=== PATIENT | male | born 1950 | race Caucasian/White ===

== ENCOUNTER → 2018-07-14 13:00 | Outpatient (CLI) | payer OTHER, SELFPAY | DX: Z23 Encounter for immunization (principal) | CPT/HCPCS: 90471; 90662 ==

== ENCOUNTER → 2019-05-17 14:29 | Outpatient (CLI) | payer OTHER, SELFPAY ==
[2019-05-17 15:53] LABS: Prothrombin Time 34.8 SECONDS (10.1-12.7)
== END ==
PROVIDERS: Family Provider Internal Medicine; PCP Internal Medicine; Visit Provider Student in an Organized Health Care Education/Training Program
DX: Z79.01 Long term (current) use of anticoagulants (principal)
CPT/HCPCS: 36415; 85610

== ENCOUNTER → 2019-06-23 09:04 | Outpatient (CLI) | payer OTHER, SELFPAY ==
[2019-06-23 11:11] LABS: BUN Creatinine Ratio 17.8 (6-22); Blood Urea Nitrogen 16 mg/dL (9-20); Carbon Dioxide 28 mmol/L (22-32); Chloride 103 mmol/L (98-107); Estimated Glomerular Filt Rate > 60.0 mL/min (>60); Glucose 98 mg/dL (80-110); Potassium 4.6 mmol/L (3.4-5.1); Sodium 142 mmol/L (137-145)
[2019-06-23 11:12] LABS: Aspartate Aminotransferase 33 IU/L (17-59); Calcium 9.9 mg/dL (8.4-10.2); HEMOLYSIS 35 (0-50)
== END ==
PROVIDERS: PCP Internal Medicine; Visit Provider Internal Medicine
DX: E78.2 Mixed hyperlipidemia (principal); N40.0 Benign prostatic hyperplasia without lower urinary tract symptoms; I10 Essential (primary) hypertension
CPT/HCPCS: 36415; 80048; 84153; 84450

== ENCOUNTER → 2020-08-07 03:57 | Outpatient (CLI) | payer OTHER, SELFPAY | PROVIDERS: PCP Internal Medicine; Referring Provider Internal Medicine; Visit Provider Internal Medicine | DX: Z23 Encounter for immunization (principal) | CPT/HCPCS: 90471; 90662 ==

== ENCOUNTER → 2020-08-29 07:27 | Outpatient (CLI) | payer OTHER, SELFPAY ==
[2020-08-29 13:26] LABS: BUN Creatinine Ratio 28.4 (6-22); Blood Urea Nitrogen 21 mg/dL (9-20); Calcium 9.8 mg/dL (8.4-10.2); Carbon Dioxide 29 mmol/L (22-32); Chloride 104 mmol/L (98-107); Cholesterol 143 mg/dL (140-199); Estimated Glomerular Filt Rate > 60.0 mL/min (>60); Glucose 77 mg/dL (80-110); HDL Cholesterol 55 mg/dL (40-60); HEMOLYSIS < 15 (0-50); LDL Cholesterol Calculated 50 mg/dL (<100); Potassium 4.5 mmol/L (3.4-5.1); Sodium 140 mmol/L (137-145); Triglycerides 188 mg/dL (35-150)
== END ==
PROVIDERS: PCP Internal Medicine; Referring Provider Internal Medicine; Visit Provider Internal Medicine
DX: I48.91 Unspecified atrial fibrillation (principal); I10 Essential (primary) hypertension
CPT/HCPCS: 36415; 80048; 80061

== ENCOUNTER → 2020-11-08 09:49 | Outpatient (CLI) | payer OTHER, SELFPAY ==
[2020-11-08] MEDS: COVID-19 VACC(MODERNA-1)/PF 100 MCG/0.5 ML VIAL IM (09:55)
== END ==
PROVIDERS: Family Provider Internal Medicine; PCP Internal Medicine; Visit Provider Internal Medicine
DX: Z23 Encounter for immunization (principal)
CPT/HCPCS: 0011A; 91301

== ENCOUNTER → 2020-12-06 09:33 | Outpatient (CLI) | payer OTHER, SELFPAY ==
[2020-12-06] MEDS: COVID-19 VACC #2, MRNA(MOD) 100 MCG/0.5 ML VIAL IM (09:39)
== END ==
PROVIDERS: Family Provider Internal Medicine; PCP Internal Medicine; Visit Provider Internal Medicine
DX: Z23 Encounter for immunization (principal)
CPT/HCPCS: 0012A; 91301

== ENCOUNTER 2021-01-03 13:00 | Outpatient (RCR) | payer OTHER, SELFPAY ==
--- NOTE | 2020-09-26 14:10 | PT.OPPOC ---
Physical, Occupational & Speech Therapy At [facility] Current Diagnoses Benign paroxysmal vertigo, bilateral (09/26/20) Visit Care Team Role Provider Type Harsh Alexander MD Attending Provider Physician Family Provider Primary Care Provider Referring Provider Specialty: Internal Medicine Address: [address] [place] [address], [id number] Email: [email or web address] Plan Of Care PT-OP-T Assessment and Plan Start: 09/26/20 07:23 Freq: Status: Active Protocol: Document 09/26/20 07:32 MB (Rec: 09/26/20 14:06 MB [id number]) Physical Therapy Assessment Rehab Potential Rehabilitation Potential Good Evaluation Complexity Number of Personal Factors/Comorbidities 0 Number of Body Systems Impaired 1-2 Clinical Presentation at Evaluation Evolving Impairments Impairments Balance,Posture,Soft Tissue Mobility,Vestibular,Visual Motor Other Impairments Systems affected include visual, vestibular and cardiac . His clinical presentation is evolving in setting of aortic stenosis. Other Concerns Fall Risk Yes Goals 2 Long-Term Goal (LTG) Pt will perform progressive HEP with I including VOR, postural, flexibility and balance exercises to decrease fall risk and improve posture and VOR function by 10/16/2020 . LTG Duration 4 weeks 1 Bulk Sugar Handler Goal (LTG) Pt will report a 95% improvement in dizziness to improve quality of life by . LTG Duration 4 weeks Assessment Summary Assessment Pt is a 70 y/o male presenting with three month history of dizziness with rolling to the right and moving up from reclined position. The symptoms are different with the two position changes-- rolling producing spinning and sitting up producting sensation of having had cocktails. Pt presents with right posterior canalithiasis BPPV today and it cleared after repositioning maneuver. He presents with postural changes that include forward head and SCM tension and these may contribute to the symptoms when he moves up to sitting from reclined position . Pt reports a history of sudden right vision loss and he was treated with TPA and takes a blood thinner. He also reports aortic stenosis and is considering having AVR. It is possible that he could have a cervicogenic vascular component to his symptoms. 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 Right eye blindness is a challenge for visual tracking and so this may affect VOR training. He may also benefit from postural training to help cervical myofascial tension in order to promote better cervical rotation for driving, cycling and scanning. Physical Therapy Plan Frequency and Duration Frequency of Treatment 1x/Week Duration of Treatment 4 weeks Plan of Care Start Date 09/26/20 Plan of Care End Date 10/17/20 Therapeutic Interventions Therapeutic Interventions Balance Training,Canalithic Repositioning,Coordination Training,Gait Training,Home Exercise Program,Joint Mobilizations,Manual Therapy, Neuromuscular Re-education, Patient/Caregiver Education, Self-Care/Home Management,Soft Tissue Mobilization,Taping, Therapeutic Exercises, Vestibular Rehabilitation Next Visit Focus/Plan Next Note Type Treatment Note Next Visit Plan DVA testing, racquet ball self -massage Plan of Care Dates Plan of Care Start Date 09/26/20 Plan of Care End Date 10/17/20 Electronically Signed by: Ariana Bronson, PT 09/26/20 1002 Please Sign and Return: I have reviewed this Plan of Care and certify that the skilled therapy services above are required to meet the patient?s needs. Physician Signature Date Printed Name and Credentials Clinical Instructor Signature Printed Name and Credentials
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
--- NOTE | 2020-11-18 13:18 | PT.OPPOC ---
Physical, Occupational & Speech Therapy At [facility] Current Diagnoses Benign paroxysmal vertigo, bilateral (11/18/20) Visit Care Team Role Provider Type Harsh Alexander MD Attending Provider Physician Family Provider Primary Care Provider Referring Provider Specialty: Internal Medicine Address: [address] [place] [address], [address] Email: [email or web address] Of Care PT-OP-T Assessment and Plan Start: 09/26/20 07:23 Freq: Status: Active Protocol: Document 11/18/20 08:18 MB (Rec: 11/18/20 08:46 MB [id number]) Physical Therapy Assessment Rehab Potential Rehabilitation Potential Good Evaluation Complexity Number of Personal Factors/Comorbidities 0 Number of Body Systems Impaired 1-2 Clinical Presentation at Evaluation Evolving Impairments Impairments Balance,Posture,Soft Tissue Mobility,Vestibular,Visual Motor Other Impairments Systems affected include visual, vestibular and cardiac . His clinical presentation is evolving in setting of aortic stenosis. Other Concerns Fall Risk Yes Goals 2 Group Home Goal (LTG) Pt will perform progressive HEP with I including VOR, postural, flexibility and balance exercises to decrease fall risk and improve posture and VOR function by 01/16/2021. 11/18/20: Pt is performing DVA VOR exercise and racquet ball massage as well as STM SCM. LTG Duration 8 weeks 1 Dietitian Goal (LTG) Pt will report a 95% improvement in dizziness to improve quality of life by . 11/18/20: Pt reports positional dizziness upon arrival and no dizziness after modified Mary for BPPV. LTG Duration 8 weeks Progress Towards Goals Progress Towards Goals Progressing Toward Goals Assessment Summary Assessment Pt returns to PT one month after last treatment. He reports that his BPPV has returned and he does have positive right posterior canalithiasis with assessment and so re-treated today. Pt reports some tension in temporal area and is agreeable to Counterstrain and so that initiated today. Pt will benefit from ongoing PT to address postural changes, assess for BPPV and progress balance and VOR exercises. Pt is currently scheduling 1x/ month but may benefit from more frequent treatments. Physical Therapy Plan Frequency and Duration Frequency of Treatment As pt schedule allow Duration of Treatment 8 weeks Plan of Care Start Date 11/18/20 Plan of Care End Date 01/16/21 Therapeutic Interventions Therapeutic Interventions Balance Training,Canalithic Repositioning,Coordination Training,Gait Training,Home Exercise Program,Joint Mobilizations,Manual Therapy, Neuromuscular Re-education, Patient/Caregiver Education, Self-Care/Home Management,Soft Tissue Mobilization,Taping, Therapeutic Exercises, Vestibular Rehabilitation Next Visit Focus/Plan Next Note Type Treatment Note Next Visit Plan Re-check BPPV as needed. Review any exercises and add LE strengthening in standing, with gait to improve balance Plan of Care Dates Plan of Care Start Date 11/18/20 Plan of Care End Date 01/16/21 Electronically Signed by: Ariana Bronson, PT 11/18/20 [id number] Please Sign and Return: I have reviewed this Plan of Care and certify that the skilled therapy services above are required to meet the patient?s needs. Physician Signature Date Printed Name and Credentials Clinical Instructor Signature Printed Name and Credentials
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
--- NOTE | 2021-01-03 13:43 | PT.OPPOC ---
Physical, Occupational & Speech Therapy At [facility] Current Diagnoses Benign paroxysmal vertigo, bilateral (01/03/21) Visit Care Team Role Provider Type Harsh Alexander MD Attending Provider Physician Family Provider Primary Care Provider Referring Provider Specialty: Internal Medicine Address: [address] [place] [address], [id number] Email: [email or web address] Plan Of Care PT-OP-T Assessment and Plan Start: 09/26/20 07:23 Freq: Status: Active Protocol: Document 01/03/21 13:02 MB (Rec: 01/03/21 13:22 MB [id number]) Physical Therapy Assessment Rehab Potential Rehabilitation Potential Good Evaluation Complexity Number of Personal Factors/Comorbidities 0 Number of Body Systems Impaired 1-2 Clinical Presentation at Evaluation Evolving Impairments Impairments Balance,Posture,Soft Tissue Mobility,Vestibular,Visual Motor Other Impairments Systems affected include visual, vestibular and cardiac . His clinical presentation is evolving in setting of aortic stenosis. Other Concerns Fall Risk Yes Goals 2 Penitentiary Goal (LTG) Pt will perform progressive HEP with I including VOR, postural, flexibility and balance exercises to decrease fall risk and improve posture and VOR function by 03/05/21. 01/03/21: Pt is performing DVA VOR exercise and racquet ball massage as well as STM SCM. LTG Duration 8 weeks 1 Penitentiary Goal (LTG) Pt will report a 95% improvement in dizziness to improve quality of life by 09/2021. 01/03/21: Pt reports 27% improvement in dizziness since starting PT LTG Duration 8 weeks Progress Towards Goals Progress Towards Goals Progressing Toward Goals Assessment Summary Assessment Pt presents with recurrence of right posterior canalithiasis BPPV today and treated. Re-ed pt on posture, hydration, self-massage. Pt would like to keep PT case open in case BPPV recurs and PT in agreement given this is the second recurrence. Physical Therapy Plan Frequency and Duration Frequency of Treatment As pt schedule allow Duration of Treatment 8 weeks Plan of Care Start Date 01/03/21 Plan of Care End Date 03/05/21 Therapeutic Interventions Therapeutic Interventions Balance Training,Canalithic Repositioning,Coordination Training,Gait Training,Home Exercise Program,Joint Mobilizations,Manual Therapy, Neuromuscular Re-education, Patient/Caregiver Education, Self-Care/Home Management,Soft Tissue Mobilization,Taping, Therapeutic Exercises, Vestibular Rehabilitation Next Visit Focus/Plan Next Note Type Treatment Note Next Visit Plan Re-check BPPV as needed. Review any exercises and add LE strengthening in standing, with gait to improve balance Plan of Care Dates Plan of Care Start Date 01/03/21 Plan of Care End Date 03/05/21 Electronically Signed by: Ariana Bronson, PT 01/03/21 4739 Please Sign and Return: I have reviewed this Plan of Care and certify that the skilled therapy services above are required to meet the patient?s needs. Physician Signature Date Printed Name and Credentials Clinical Instructor Signature Printed Name and Credentials
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
== END 2021-02-12 07:40 | disposition home or self-care (01) ==
LOC: PHYS 13:00
PROVIDERS: Family Provider Internal Medicine; PCP Internal Medicine; Referring Provider Internal Medicine; Visit Provider Internal Medicine
DX: H81.13 Benign paroxysmal vertigo, bilateral (principal)
CPT/HCPCS: 95992; 97110; 97112; 97140; 97162; 97535

== ENCOUNTER → 2021-06-09 16:02 | Outpatient (CLI) | payer OTHER, SELFPAY ==
--- NOTE | 2021-06-09 | DI.MRI.S_ITS ---
PROCEDURE: MR ANKLE LT WO CON INDICATIONS: Achilles tendinitis, unspecified leg TECHNIQUE: Noncontrast sagittal T1 spin echo and T2 fast spin echo with fat saturation, axial proton density fast spin echo and T2 fast spin echo with fat saturation, coronal T1 spin echo and T2 fast spin echo with fat saturation through the ankle/hindfoot. COMPARISON: None. FINDINGS: Bones and joints: Bones: No marrow contusions or fractures. Scattered degenerative subchondral sclerosis and spurring. Circumferential subcutaneous edema. Mild tibiotalar joint degeneration. Coalitions: No hindfoot coalitions. Talar dome: Subchondral marrow edema involving the lateral talar dome probably reactive to osteoarthritis, versus osteochondral lesion of talus. Other: No pathologic joint effusions. Medial structures: Posterior tibialis: Intact. Mild tenosynovitis Flexor digitorum longus: Intact. Mild tenosynovitis Flexor hallucis longus: Intact. Posterior tibial neurovascular bundle: Normal. Deltoid ligament complex: Intact. Spring ligament: Intact. Lateral structures: Anterior talofibular ligament: Not well seen likely indicating chronic rupture. Calcaneofibular ligament: Intact. Posterior talofibular ligament: Intact. Anterior tibiofibular ligament: Intact. Posterior tibiofibular ligament: Intact. Intermalleolar ligament: Intact. Tibiofibular syndesmosis: Normal. Peroneus longus: Intact. Peroneus brevis: Intact. Bony peroneal tubercle and retrotrochlear prominence: Normal. Sinus tarsi: Normal. Anterior structures: Tibialis anterior: Intact. Extensor hallucis longus: Intact. Extensor digitorum longus: Intact. Dorsal talonavicular ligament: Intact. Posterior and plantar structures: Achilles tendon: High-grade partial rupture of the Achilles tendon with marked tendinopathy and thickening. This is centered approximately 6.8 cm from the calcaneal attachment and measures approximately 4.8 cm in length. There is adjacent edema. Plantar fascia: Medial band plantar fasciitis. Muscles: There is isolated abductor digiti quinti muscle atrophy which raises the possibility of suggest neuropathy. IMPRESSION: High-grade partial rupture of the Achilles tendon as detailed above. Circumferential subcutaneous edema. Tenosynovitis involving the posterior tibialis and flexor digitorum longus. 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 Medial band plantar fasciitis Dictated by: Gigi Hunter M.D. on 06/09/2021 at 17:09 Approved by: Gigi Hunter M.D. on 06/09/2021 at 17:18
== END ==
PROVIDERS: Family Provider Internal Medicine; PCP Internal Medicine; Referring Provider Physician Assistant; Visit Provider Physician Assistant
DX: M76.62 Achilles tendinitis, left leg (principal); S86.012A Strain of left Achilles tendon, initial encounter; S93.492A Sprain of other ligament of left ankle, initial encounter; M72.2 Plantar fascial fibromatosis; X58.XXXA Exposure to other specified factors, initial encounter
CPT/HCPCS: 73721

== ENCOUNTER → 2021-08-05 | Outpatient (CLI) | payer OTHER, SELFPAY | PROVIDERS: Family Provider Internal Medicine; PCP Internal Medicine; Referring Provider Internal Medicine; Visit Provider Internal Medicine | DX: Z23 Encounter for immunization (principal) | CPT/HCPCS: 90471; 90662 ==

== ENCOUNTER → 2021-11-28 10:38 | Outpatient (CLI) | payer OTHER, SELFPAY ==
[2021-11-28 12:52] LABS: COVID19 - ADMIT (NP swab/PCR) Negative (Negative)
== END ==
PROVIDERS: Family Provider Internal Medicine; PCP Internal Medicine; Visit Provider Family Medicine Sleep Medicine
DX: Z20.822 Contact with and (suspected) exposure to COVID-19 (principal)
CPT/HCPCS: C9803; U0003; U0005

== ENCOUNTER → 2022-03-04 07:33 | Outpatient (CLI) | payer OTHER, SELFPAY ==
[2022-03-04 08:28] LABS: Hematocrit 44.7 % (41-53); Hemoglobin 15.2 g/dL (13.5-17.5); Mean Corpuscular HGB Conc 33.9 % (30-36); Mean Corpuscular Hemoglobin 30.6 PG (26-34); Mean Corpuscular Volume 90.2 fL (80-100); Platelet Count 123 X10^3/uL (150-400); Red Blood Cell Count 4.96 X10^6/uL (4.5-5.9); Red Cell Distribution Width 13.8 % (11.6-14.8); White Blood Cell Count 7.5 X10^3/uL (4.5-11.0)
[2022-03-04 08:56] LABS: Alanine Aminotransferase 27 IU/L (<50); Albumin 4.4 g/dL (3.5-5.0); Albumin Globulin Ratio 1.5 (1.0-2.8); Alkaline Phosphatase 93 U/L (38-126); Aspartate Aminotransferase 32 IU/L (17-59); BUN Creatinine Ratio 20.8 (6-22); Bilirubin Total 0.7 mg/dL (0.2-1.3); Blood Urea Nitrogen 16 mg/dL (9-20); Calcium 9.3 mg/dL (8.4-10.2); Carbon Dioxide 25 mmol/L (22-32); Chloride 109 mmol/L (98-107); Cholesterol 147 mg/dL (140-199); Estimated Glomerular Filt Rate > 60 mL/min (>60); Globulin 2.9 g/dL (1.7-4.1); Glucose 99 mg/dL (80-110); HDL Cholesterol 54 mg/dL (40-60); HEMOLYSIS < 15 (0-50); LDL Cholesterol Calculated 60 mg/dL (<100); Potassium 4.2 mmol/L (3.4-5.1); Sodium 141 mmol/L (137-145); Total Protein 7.3 g/dL (6.3-8.2); Triglycerides 164 mg/dL (35-150)
[2022-03-04 09:23] LABS: Prostate Specific Antigen 1.31 ng/mL (0.10-4.00)
[2022-03-04 09:26] LABS: TSH w/ Reflex to FT4 1.19 uIU/mL (0.47-4.68)
== END ==
PROVIDERS: Family Provider Internal Medicine; PCP Internal Medicine; Referring Provider Internal Medicine; Visit Provider Internal Medicine
DX: E78.2 Mixed hyperlipidemia (principal); I35.0 Nonrheumatic aortic (valve) stenosis; I48.92 Unspecified atrial flutter; N13.8 Other obstructive and reflux uropathy; N40.1 Benign prostatic hyperplasia with lower urinary tract symptoms
CPT/HCPCS: 36415; 80053; 80061; 84153; 84443; 85027

== ENCOUNTER 2022-05-04 08:30 | Outpatient (RCR) | payer OTHER, SELFPAY | END 2022-05-04 12:00 | LOC: CAR 08:30 | PROVIDERS: Family Provider Internal Medicine; PCP Internal Medicine; Referring Provider Internal Medicine Interventional Cardiology; Visit Provider Internal Medicine Interventional Cardiology | DX: Z95.2 Presence of prosthetic heart valve (principal) | CPT/HCPCS: 93798 ==

== ENCOUNTER → 2022-06-17 08:30 | Outpatient (CLI) | payer OTHER, SELFPAY ==
[2022-06-17 09:17] LABS: INR 2.2 (0.9-1.3); Prothrombin Time 25.7 SECONDS (10.1-12.7)
== END ==
PROVIDERS: Family Provider Internal Medicine; PCP Internal Medicine; Referring Provider Internal Medicine; Visit Provider Internal Medicine
DX: Z79.01 Long term (current) use of anticoagulants (principal)
CPT/HCPCS: 36415; 85610

== ENCOUNTER → 2022-07-21 09:00 | Outpatient (CLI) | payer OTHER, SELFPAY | PROVIDERS: Family Provider Internal Medicine; PCP Internal Medicine; Referring Provider Internal Medicine; Visit Provider Internal Medicine | DX: Z23 Encounter for immunization (principal) | CPT/HCPCS: 90471; 90662 ==

== ENCOUNTER → 2022-07-29 08:04 | Outpatient (CLI) | payer OTHER, SELFPAY ==
[2022-07-29 10:39] LABS: INR 2.7 (0.9-1.3); Prothrombin Time 30.8 SECONDS (10.1-12.7)
== END ==
PROVIDERS: Family Provider Internal Medicine; PCP Internal Medicine; Referring Provider Internal Medicine; Visit Provider Internal Medicine
DX: Z79.01 Long term (current) use of anticoagulants (principal); Z95.2 Presence of prosthetic heart valve
CPT/HCPCS: 36415; 85610

== ENCOUNTER → 2022-09-08 08:16 | Outpatient (CLI) | payer OTHER, SELFPAY ==
[2022-09-08 09:00] LABS: Hematocrit 42.7 % (41-53); Hemoglobin 14.1 g/dL (13.5-17.5); Mean Corpuscular HGB Conc 33.1 % (30-36); Mean Corpuscular Hemoglobin 29.9 PG (26-34); Mean Corpuscular Volume 90.4 fL (80-100); Platelet Count 134 X10^3/uL (150-400); Red Blood Cell Count 4.73 X10^6/uL (4.5-5.9); Red Cell Distribution Width 13.7 % (11.6-14.8); White Blood Cell Count 6.1 X10^3/uL (4.5-11.0)
[2022-09-08 09:14] LABS: INR 2.1 (0.9-1.3); Prothrombin Time 24.4 SECONDS (10.1-12.7)
[2022-09-08 09:18] LABS: Alanine Aminotransferase 32 IU/L (<50); Albumin 4.2 g/dL (3.5-5.0); Albumin Globulin Ratio 1.5 (1.0-2.8); Alkaline Phosphatase 110 U/L (38-126); Aspartate Aminotransferase 34 IU/L (17-59); BUN Creatinine Ratio 25.6 (6-22); Bilirubin Total 0.6 mg/dL (0.2-1.3); Blood Urea Nitrogen 21 mg/dL (9-20); C-Reactive Protein Quant < 0.5 mg/dL (<1.0); Calcium 9.2 mg/dL (8.4-10.2); Carbon Dioxide 26 mmol/L (22-32); Chloride 106 mmol/L (98-107); Cholesterol 121 mg/dL (140-199); Estimated Glomerular Filt Rate > 60 mL/min (>60); Globulin 2.8 g/dL (1.7-4.1); Glucose 86 mg/dL (80-110); HDL Cholesterol 59 mg/dL (40-60); HEMOLYSIS < 15 (0-50); LDL Cholesterol Calculated 38 mg/dL (<100); Potassium 4.2 mmol/L (3.4-5.1); Sodium 141 mmol/L (137-145); Triglycerides 120 mg/dL (35-150)
[2022-09-08 09:42] LABS: TSH w/ Reflex to FT4 1.73 uIU/mL (0.47-4.68)
== END ==
PROVIDERS: Family Provider Internal Medicine; PCP Internal Medicine; Referring Provider Internal Medicine; Visit Provider Internal Medicine
DX: E78.2 Mixed hyperlipidemia (principal); I35.0 Nonrheumatic aortic (valve) stenosis; I48.92 Unspecified atrial flutter; Z79.01 Long term (current) use of anticoagulants; M13.0 Polyarthritis, unspecified; Z95.2 Presence of prosthetic heart valve
CPT/HCPCS: 36415; 80053; 80061; 84443; 85027; 85610; 86140

== ENCOUNTER → 2022-11-05 10:20 | Outpatient (CLI) | payer OTHER, SELFPAY ==
[2022-11-05 10:45] LABS: INR 2.7 (0.9-1.3); Prothrombin Time 31.1 SECONDS (10.1-12.7)
== END ==
PROVIDERS: Family Provider Internal Medicine; PCP Internal Medicine; Referring Provider Internal Medicine; Visit Provider Internal Medicine
DX: Z79.01 Long term (current) use of anticoagulants (principal); Z95.2 Presence of prosthetic heart valve
CPT/HCPCS: 36415; 85610

== ENCOUNTER → 2022-11-18 09:16 | Outpatient (CLI) | payer OTHER, SELFPAY ==
[2022-11-18 10:20] LABS: COVID19 -Nasal RAPID Negative (Negative)
== END ==
PROVIDERS: Family Provider Internal Medicine; PCP Internal Medicine; Visit Provider Surgery
DX: Z01.812 Encounter for preprocedural laboratory examination (principal); Z20.822 Contact with and (suspected) exposure to COVID-19
CPT/HCPCS: 87635; C9803

== ENCOUNTER → 2022-11-19 08:59 | Day surgery (SDC) | payer OTHER, SELFPAY ==
[2022-11-19] VITALS (9 sets, daily range): BP systolic 59–122; BP diastolic 36–82; PULSE 39–77; RESP 12–18; TEMP 36.3–36.6; O2SAT 95–99; BMI 27.5
--- NOTE | 2022-11-19 | PATH_ITS ---
[facility] Accession Number: [id number] No. of containers..02 Tissue . 01 Material submitted: . PART A: colon - ASCENDING POLYPS PART B: colon - DESCENDING POLYP . 01 Diagnosis: A. Ascending Colon, Polyps, Biopsies: Tubular adenomas. . B. Descending Colon, Polyp, Biopsy: Tubular adenoma. MRV 11/25/2022 1149 Local . 01 Electronically signed: . Alondra Freitas MD, Pathologist NPI- [id number] . 01 Gross description: . Part A: ASCENDING POLYPS: Received in formalin are multiple fragment(s) of steward, soft tissue measuring 1.7 x 0.6 x 0.1 cm in aggregate submitted entirely in 1 cassette(s) Part B: DESCENDING POLYP: Received in formalin is 1 fragment(s) of steward, soft tissue measuring 0.3 x 0.2 x 0.1 cm submitted entirely in 1 cassette(s) /CPE 11/20/2022 0837 Local . 01 Pathologist provided ICD-10: D12.2, D12.4 . 01 CPT . 167485, [id number] Specimen Comment: A courtesy copy of this report has been sent to [phone] Performed at: 01 [facility] [address] [place] [address] Suite [facility], [place], [place] [id number] MD Capo Jeong MD Phone: [phone]
[2022-11-19] MEDS: LACTATED RINGERS 1,000 ML 84 ML IV (09:55)
--- NOTE | 2022-11-19 09:57 | PM.HP.1 ---
History of Present Illness History of Present Illness Date Patient Seen: 11/19/22 Time Patient Seen: 09:57 Chief complaint: SCREENING COLONOSCOPY Narrative: Anam is a 72-year-old man who is here for colonoscopy. His last 1 was 2011. Two polyps were removed but 1 was normal tissue and 1 was a hyperplastic polyp. He has stopped his Coumadin and his INR is normal. Patient History Medical History (Updated 11/19/22 @ 09:58 by Bernabe Evangelista MD) Advanced directives, counseling/discussion BPH w urinary obs/LUTS Chronic anticoagulation Chronic insomnia Essential hypertension History of gout Hyperlipidemia type III Medicare annual wellness visit, initial Non-rheumatic aortic stenosis Paroxysmal atrial flutter Primary osteoarthritis involving multiple joints Surgical History S/P TAVR (transcatheter aortic valve replacement) Family & Social History Social History: household members spouse Tobacco & Substance use: Smoking Status Never smoker alcohol intake current Meds Home Medications and Allergies Home Medications Medication Instructions Recorded Confirmed Type amlodipine 5 mg tablet (Norvasc) 5 mg PO QDAY ##0 12/23/16 11/19/22 History lisinopril 20 mg tablet 20 mg PO QDAY ##0 12/23/16 11/19/22 History metoprolol succinate 50 mg 50 mg PO DAILY 03/02/22 11/19/22 History tablet,extended release 24 hr warfarin 5 mg tablet 5 mg PO DAILY 03/02/22 11/19/22 History alpha lipoic acid 1,000 mg PO DAILY 09/07/22 09/07/22 History amoxicillin 500 mg capsule 2,000 mg PO .prn 09/07/22 09/07/22 History coenzyme Q10 100 mg capsule See Rx Instructions PO BID 09/07/22 09/07/22 History niacin 500 mg tablet 500 mg PO BID 09/07/22 09/07/22 History omega 3 1,000 mg PO DAILY 09/07/22 History rosuvastatin 40 mg tablet 40 mg PO Q OTHER DAY 09/07/22 11/19/22 History sodium sul 1.479 gram-potas ch See Rx Instructions PO PER PKG DIR 11/06/22 Rx 0.188 gram-magnes sul 0.225 gram #24 tabs tablet (Sutab) Allergies Allergy/AdvReac Type Severity Reaction Status Date / Time No Known Allergies Allergy Unknown Uncoded 11/19/22 09:28 Exam Vital Signs (past 8 hours): - 11/19/22 09:31 Temperature 97.8 F Pulse Rate 77 Respiratory Rate 14 Blood Pressure 122/82 Pulse Oximetry 99 Oxygen Delivery Method Room Air Oxygen Delivery Method Room Air Const General: healthy appearing Assessment & Plan Assessment and plan (1) Colon cancer screening: Status: Acute Plan 72-year-old man who is here for colonoscopy for colon cancer screening. We reviewed the risks and benefits and he would like to proceed. Time Spent With Patient Critical Care time: I spent a total of [] minutes of critical care time on this patient's care today; this time is exclusive of procedural time.
--- NOTE | 2022-11-19 11:11 | PM.OP.COLON ---
Operative Date/Time/Diagnoses Date of procedure: 11/19/22 Time of procedure: 11:11 Pre-op diagnosis: Colon cancer screening Post-op diagnosis: same Procedure & Clinicians Study performed: Colonoscopy Same procedure as scheduled: Yes Surgeon: Bernabe Evangelista Procedure Notes Procedure in detail: Surgeon: Bernabe Evangelista MD Anesthesia: Dr. Holman Procedure: The patient was brought to the endoscopy suite, placed in left lateral decubitus position. The patient was connected to monitoring devices. A time-out was performed. Sedation was administered. Once the patient was adequately sedated, a digital rectal exam was performed and was normal. The scope was then inserted and advanced to the cecum where the appendiceal orifice was identified and photographed. The scope was then slowly withdrawn over greater than 6 minutes. The mucosa was thoroughly inspected. There was a 1 cm flat polyp in the proximal ascending colon removed with a hot snare. There was a 5 mm polyp in the distal ascending colon close to the hepatic flexure removed with a cold snare. There was a 5 mm polyp in the descending colon removed with a cold forceps. The scope was retroflexed in the rectum. No other abnormalities were seen. The scope was straightened and removed. The patient was awakened and brought to recovery. Scope withdrawal time: 15 minutes Sedation time: 22 minutes EBL: 5 mL Findings: 1 cm polyp in the ascending colon, 5 mm polyp in the ascending colon, 5 mm polyp in the descending colon Post-procedure Disposition: PACU
== END | disposition home or self-care (01) ==
PROVIDERS: Family Provider Internal Medicine; PCP Internal Medicine; Referring Provider Surgery; Visit Provider Surgery
PROC: 0DJD8ZZ Inspection of Lower Intestinal Tract, Via Natural or Artificial Opening Endoscopic (ICD-10-PCS; CPT 45378; principal; 2022-11-19 10:15)
DX: Z12.11 Encounter for screening for malignant neoplasm of colon (principal); D12.2 Benign neoplasm of ascending colon; D12.4 Benign neoplasm of descending colon
CPT/HCPCS: 45385; 45380; J2704; J3010

== ENCOUNTER → 2023-01-08 08:07 | Outpatient (CLI) | payer OTHER, SELFPAY ==
[2023-01-08 08:54] LABS: INR 1.9 (0.9-1.3); Prothrombin Time 22.2 SECONDS (10.1-12.7)
== END ==
PROVIDERS: Family Provider Internal Medicine; PCP Internal Medicine; Referring Provider Internal Medicine; Visit Provider Internal Medicine
DX: Z79.01 Long term (current) use of anticoagulants (principal); Z95.2 Presence of prosthetic heart valve
CPT/HCPCS: 36415; 85610

== ENCOUNTER → 2023-03-15 07:36 | Outpatient (CLI) | payer OTHER, SELFPAY ==
[2023-03-15 08:44] LABS: BUN Creatinine Ratio 26.1 (6-22); Blood Urea Nitrogen 18 mg/dL (9-20); Calcium 9.4 mg/dL (8.4-10.2); Carbon Dioxide 27 mmol/L (22-32); Chloride 106 mmol/L (98-107); Estimated Glomerular Filt Rate > 60 mL/min (>60); Glucose 93 mg/dL (80-110); HEMOLYSIS < 15 (0-50); Potassium 4.2 mmol/L (3.4-5.1); Sodium 140 mmol/L (137-145)
[2023-03-15 09:16] LABS: Prostate Specific Antigen 1.12 ng/mL (0.10-4.00)
[2023-03-17 04:12] LABS: Lipoprotein (a) 15.2 nmol/L (<75.0)
== END ==
PROVIDERS: Family Provider Internal Medicine; PCP Internal Medicine; Referring Provider Internal Medicine; Visit Provider Internal Medicine
DX: E78.2 Mixed hyperlipidemia (principal); I10 Essential (primary) hypertension; N13.8 Other obstructive and reflux uropathy; N40.1 Benign prostatic hyperplasia with lower urinary tract symptoms
CPT/HCPCS: 36415; 80048; 83695; 84153

== ENCOUNTER → 2023-07-27 15:59 | Outpatient (CLI) | payer OTHER, SELFPAY | PROVIDERS: Family Provider Internal Medicine; PCP Internal Medicine; Referring Provider Family Medicine; Visit Provider Family Medicine | DX: Z23 Encounter for immunization (principal) | CPT/HCPCS: 90471; 90662 ==

== ENCOUNTER → 2023-11-16 06:59 | Outpatient (CLI) | payer OTHER, SELFPAY ==
[2023-11-16 08:36] LABS: INR 1.6 (0.9-1.3); Prothrombin Time 18.9 SECONDS (9.4-12.5)
[2023-11-16 10:06] LABS: Cholesterol 126 mg/dL (140-199); HDL Cholesterol 59 mg/dL (40-60); LDL Cholesterol Calculated 46 mg/dL (<100); Magnesium 2.4 mg/dL (1.6-2.3); Triglycerides 104 mg/dL (35-150)
[2023-11-16 10:11] LABS: High Sensitivity CRP - Cardiac 6.9 mg/L (1.0-3.0)
[2023-11-16 12:38] LABS: Hemoglobin A1C% w Est Avg Glu 5.6 % (4.0-6.0)
[2023-11-17 03:11] LABS: Apolipoprotein A1 155 mg/dL (101-178); Apolipoprotein B 39 mg/dL (<90)
== END ==
LOC: LAB 07:00
PROVIDERS: Family Provider Internal Medicine; PCP Internal Medicine; Referring Provider Internal Medicine; Visit Provider Internal Medicine
DX: E78.2 Mixed hyperlipidemia (principal)
CPT/HCPCS: 36415; 80061; 82172; 83036; 83735; 85610; 86140

== ENCOUNTER → 2023-11-23 08:17 | Outpatient (CLI) | payer OTHER, SELFPAY ==
--- NOTE | 2023-11-23 | DI.ECHO.S_ITS ---
[place] [facility]---------+ [facility] +---------+ : : [address] : : : : [id number] : : : : Phone: [phone] Echocardiogram Report + + :Name: PAULA ONEILL Study Date: 11/23/2023 Height: 75 in : :[facility] ReadingLocation: Weight: 218 lb : : Gender: Male BSA: 2.3 m2 : :: 1950 Age: 73 yrs BP: 114/69 mmHg: :Reason For Study: PRESENCE OF PROSTHETIC HEART VALVE : :Ordering Physician: ARISTEO, : :LYNDON Performed By: Madeleine Gregg : :Referring: LYNDON SMITH : + + Interpretation Summary 1) Normal left ventricular thickness, size, wall motion, and systolic function (EF 65-70%). 2) Mildly enlarged right ventricle with normal function. 3) The left atrium is severely dilated 4) There is a bioprosthetic aortic valve that is well seated and opens well (mean gradient 13 mmHg). 5) The right ventricular systolic pressure is estimated to be at least 32 mmHg based on an estimated right atrial pressure of 3 mm Hg. 6) Compared to the Echo done 05/08/2016, bioprosthetic aortic valve is present on this study. Procedure: A two-dimensional transthoracic echocardiogram with color flow and Doppler was performed. The study quality was technically adequate. Comparison is made with the echocardiogram of 05/08/2016. The patient had occasional PVCs during the exam. The patient was in sinus rhythm with heart rates between 67-80 bpm during the exam. Left Ventricle: The left ventricle is normal in size and wall thickness. The ejection fraction is estimated to be 65-70%. Left ventricular systolic function appears normal without focal wall motion abnormalities. Diastolic parameters suggest a pseudonormalization pattern, consistent with probable elevated filling pressures. Right Ventricle: The right ventricle is mildly dilated. The right ventricular systolic function is normal. Atria: The left atrium is severely dilated. The right atrium is borderline dilated. There is no Doppler evidence for an interatrial shunt. Mitral Valve: There is severe mitral annular calcification. The mitral valve leaflets are mildly calcified. The mitral valve mean gradient is 5.2 mmHg. There is mild mitral stenosis. There is mild mitral regurgitation. Aortic Valve: There is a bioprosthetic aortic valve. The peak aortic velocity is 2.36 m/sec. The aortic valve mean gradient is 13 mmHg. There is trace aortic regurgitation. Tricuspid Valve: The tricuspid valve is normal. There is mild tricuspid regurgitation. The right ventricular systolic pressure is estimated to be at least 32 mmHg based on an estimated right atrial pressure of 3 mm Hg. Pulmonic Valve: The pulmonic valve leaflets are thin and pliable; valve motion is normal. There is a trace or physiologic amount of pulmonic regurgitation. Great Vessels: The dimensions of the ascending aorta are normal. The IVC is of normal diameter and collapses greater than 50% with a sniff. This suggests a low right atrial pressure of 3 mm Hg. Pericardium/ Pleura There is no pericardial effusion. There is no pleural effusion. MMode/2D Measurements & Calculations LVIDd: 4.6 cm LVOT diam: 2.1 cm LVIDs: 2.9 cm asc Aorta Diam: 3.5 cm FS: 35.9 % Ao Arch Diam (Prox Trans): 3.2 cm IVSd: 0.95 cm LVPWd: 1.00 cm LV burgos. diameter/BSA (cm/m^2): 2.0 LV sys. diameter/BSA (cm/m^2): 1.3 LA A2 area: 31.3 cm2 RA long axis: 6.0 cm LA A4 area: 32.6 cm2 RA area: 22.7 cm2 LA length (vol): 7.0 cm RA vol: 72.6 ml LA vol: 123.3 ml RA : 31.9 ml/m2 LA vol index: 54.2 ml/m2 IVC diam: 1.5 cm RVD1 (basal): 4.1 cm RVD2 (mid): 3.0 cm TAPSE: 2.8 cm Doppler Measurements & Calculations Ao V2 max: 236.6 cm/sec LVOT Max Saurav: 139.3 cm/sec Ao V2 mean: 175.8 cm/sec LV V1 max P.8 mmHg Ao max P.4 mmHg LV V1 VTI: 28.1 cm Ao mean P.4 mmHg TERRIE(I,D): 2.2 cm2 Ao V2 VTI: 46.3 cm TERRIE(V,D): 2.1 cm2 sev ratio: 0.61 TERRIE indexed to BSA (cm^2/m^2): 0.97 MV E max saurav: 150.6 cm/sec TR max saurav: 269.7 cm/sec MV A max saurav: 142.3 cm/sec TR max P.1 mmHg MV E/A: 1.1 PA V2 max: 111.8 cm/sec Med Peak E' Saurav: 8.9 cm/sec PA V2 mean: 79.5 cm/sec E/E' med: 17.0 PA mean P.7 mmHg Lat Peak E' Saurav: 8.9 cm/sec PA pr(Accel): 51.6 mmHg E/E' lat: 16.9 E/e' average: 16.9 MV dec time: 0.31 sec MVA(VTI): 1.9 cm2 MV V2 mean: 105.6 cm/sec SV(LVOT): 102.1 ml MV mean P.2 mmHg MV V2 VTI: 55.0 cm Reading Physician:05:36 PM
== END ==
LOC: ECHO 08:17
PROVIDERS: Family Provider Internal Medicine; PCP Internal Medicine; Referring Provider Internal Medicine Cardiovascular Disease; Visit Provider Internal Medicine Cardiovascular Disease
DX: I08.1 Rheumatic disorders of both mitral and tricuspid valves (principal); Z95.2 Presence of prosthetic heart valve
CPT/HCPCS: 93306

== ENCOUNTER → 2023-12-03 09:25 | Outpatient (CLI) | payer OTHER, SELFPAY ==
[2023-12-03 10:58] LABS: INR 2.2 (0.9-1.3); Prothrombin Time 25.3 SECONDS (9.4-12.5)
== END ==
PROVIDERS: Internal Medicine; Family Provider Internal Medicine; PCP Internal Medicine; Referring Provider Internal Medicine; Visit Provider Internal Medicine
DX: I82.409 Acute embolism and thrombosis of unspecified deep veins of unspecified lower extremity (principal)
CPT/HCPCS: 36415; 85610

== ENCOUNTER 2023-12-30 13:26 | Observation (INO) | payer OTHER, SELFPAY ==
[2023-12-30] VITALS (17 sets, daily range): BP systolic 99–129; BP diastolic 54–79; PULSE 69–98; RESP 15–24; TEMP 36.2–36.9; O2SAT 97–100; BMI 27.8
[2023-12-30 13:59] LABS: Add Manual Diff / Slide Review NO; Basophils Absolute Auto 100 /uL (0-100); Basophils Percent Auto 0.5 % (0-2); Eosinophils Absolute Auto 0 /uL (0-450); Eosinophils Percent Auto 0.3 % (2-4); Hematocrit 34.2 % (41-53); Hemoglobin 11.5 g/dL (13.5-17.5); Lymphocytes Absolute Auto 1700 /uL (1100-4500); Lymphocytes Percent Auto 15.1 % (25-40); Mean Corpuscular HGB Conc 33.7 % (30-36); Mean Corpuscular Hemoglobin 30.3 PG (26-34); Mean Corpuscular Volume 89.9 fL (80-100); Monocytes Absolute Auto 700 /uL (0-900); Monocytes Percent Auto 6.3 % (3-14); Neutrophils Absolute Auto 8800 /uL (1500-7000); Neutrophils Percent Auto 77.8 % (50-75); Platelet Count 122 X10^3/uL (150-400); Red Blood Cell Count 3.81 X10^6/uL (4.5-5.9); Red Cell Distribution Width 13.4 % (11.6-14.8); White Blood Cell Count 11.2 X10^3/uL (4.5-11.0)
[2023-12-30 14:06] LABS: INR 2.7 (0.9-1.3); Prothrombin Time 30.9 SECONDS (9.4-12.5)
[2023-12-30 14:09] LABS: Alanine Aminotransferase 26 IU/L (<50); Albumin 4.1 g/dL (3.5-5.0); Albumin Globulin Ratio 1.5 (1.0-2.8); Alkaline Phosphatase 76 U/L (38-126); Aspartate Aminotransferase 29 IU/L (17-59); BUN Creatinine Ratio 62.8 (6-22); Bilirubin Total 0.3 mg/dL (0.2-1.3); Blood Urea Nitrogen 49 mg/dL (9-20); Calcium 9.2 mg/dL (8.4-10.2); Carbon Dioxide 22 mmol/L (22-32); Chloride 111 mmol/L (98-107); Estimated Glomerular Filt Rate > 60 mL/min (>60); Globulin 2.8 g/dL (1.7-4.1); Glucose 122 mg/dL (80-110); HEMOLYSIS < 15 (0-50); PTT Partial Thromboplastin Tim 43 SECONDS (25.1-36.5); Potassium 4.2 mmol/L (3.4-5.1); Sodium 141 mmol/L (137-145); Total Protein 6.9 g/dL (6.3-8.2)
[2023-12-30] MEDS: PANTOPRAZOLE 40 MG VIAL 80 MG IV (16:27)
--- NOTE | 2023-12-30 17:07 | DI.CT.S_ITS ---
PROCEDURE: CT ABDOMEN PELVIS W CON INDICATIONS: gi bleed TECHNIQUE: After the administration of intravenous contrast, axial sections acquired from the lung bases to the pubic symphysis. Coronal and sagittal reformats were performed. For radiation dose reduction, the following was used: automated exposure control, adjustment of mA and/or kV according to patient size. COMPARISON: None. FINDINGS: Image quality: Diagnostic Lower chest: Mild bibasilar atelectasis or scarring. Mitral device. Coronary calcifications. Liver: Unremarkable Gallbladder and biliary system: Unremarkable, nondilated Pancreas: No ductal dilation Spleen: Nonenlarged Adrenals: No discrete nodules Kidneys: Bosniak 1 and 2 renal lesions are present, for which no dedicated followup is necessary per latest proposed guidelines. No hydronephrosis Vessels and lymph nodes: No abdominal aortic aneurysm. There are atherosclerotic calcifications. No pathologic lymph nodes by size criteria. Bowel and peritoneum: No evidence of small bowel obstruction. On this multiphase CT, no evidence of active arterial extravasation. The appendix is normal diameter. The stomach is under distended, with appearance of wall thickening, which may be artifactual, this is not well evaluated. No pathologic ascites. Body wall: Tiny fat containing umbilical hernia. Pelvis: Bladder is unremarkable. Heterogeneous borderline enlarged prostate, correlate with PSA if indicated. Bones: Right femur hardware. Scattered degenerative changes. Deformity of the left pubic ring, nonacute appearing, but age-indeterminate, also involving the right and parasymphyseal regions. IMPRESSION: No small bowel obstruction. No active arterial bleeding identified. In the setting of reported GI bleed, consider GI consultation and endoscopic correlation. Age-indeterminate deformity of the left greater than right parasymphyseal regions and pubic ring, correlate with any symptoms and clinical history. If further evaluation is needed, consider MRI. Other findings as above. Dictated by: Harish Zambrano M.D. on 12/30/2023 at 18:14 Approved by: Harish Zambrano M.D. on 12/30/2023 at 18:20
--- NOTE | 2023-12-30 17:10 | ED.GIBLEED ---
HPI - GI Bleed General Chief complaint: GI Bleed Stated complaint: upper GI bleed per pt Time Seen by Provider: 12/30/23 16:51 Source: patient Mode of arrival: Ambulatory History of Present Illness HPI Narrative: Patient here with . 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 Has had diaphoresis dizziness and dyspnea with this event. 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 Patient does not have recurrent atrial flutter or atrial fibrillation. Patient had colonoscopy done last year with Dr. Anders. Patient has never had GI bleed with Coumadin. Patient felt short of breath when walking downstairs. Patient has history of TAVR. Related Data Home Medications Medication Instructions Recorded Confirmed amlodipine 5 mg tablet (Norvasc) 5 mg PO QDAY ##0 12/23/16 12/30/23 lisinopril 20 mg tablet 20 mg PO QDAY ##0 12/23/16 12/30/23 metoprolol succinate 50 mg 50 mg PO DAILY 03/02/22 12/30/23 tablet,extended release 24 hr warfarin 5 mg tablet 5 mg PO DAILY 03/02/22 12/30/23 amoxicillin 500 mg capsule 2,000 mg PO .prn 09/07/22 12/30/23 coenzyme Q10 100 mg capsule See Rx Instructions PO BID 09/07/22 12/30/23 niacin 500 mg tablet 500 mg PO BID 09/07/22 12/30/23 omega 3 1,000 mg PO DAILY 09/07/22 12/30/23 rosuvastatin 40 mg tablet 20 mg PO Q OTHER DAY 09/07/22 12/30/23 Previous Rx's Medication Instructions Recorded pantoprazole 40 mg tablet,delayed 40 mg PO BID #60 tabs 01/01/24 release Allergies Allergy/AdvReac Type Severity Reaction Status Date / Time No Known Allergies Allergy Unknown Verified 12/30/23 17:20 Review of Systems Review of Systems Narrative: GENERAL: negative chills, fatigue, malaise, fever, positive sweats. HEENT: negative sinus pain, ear pain, sore throat RESPIRATORY: Positive dyspnea, negative cough CARDIOVASCULAR: negative chest pain, palpitations GASTROINTESTINAL: negative nausea, vomiting, abdominal pain, positive dark stools : negative dysuria, frequency, hematuria MUSCULOSKELETAL: negative muscle or bony pain SKIN: negative rash, skin lesions NEUROLOGIC: negative weakness, numbness, positive dizziness ROS Unobtainable: All systems reviewed & are unremarkable except as noted in HPI and below Patient History Medical History Primary osteoarthritis involving multiple joints History of gout Hyperlipidemia type III BPH w urinary obs/LUTS Paroxysmal atrial flutter Non-rheumatic aortic stenosis Chronic insomnia Essential hypertension Chronic anticoagulation Surgical History S/P TAVR (transcatheter aortic valve replacement) Social History household members: spouse Smoking Status: Never smoker alcohol intake: current Smoking Status: Never smoker alcohol intake frequency: holidays/special occasions only Substance Use Type: does not use Exam Narrative Exam Narrative: GENERAL: in no distress, not toxic not dyspneic HEAD: Normocephalic. EYES: Pupils equal round slightly pale conjunctiva ENT: Mucous membranes moist. NECK: Trachea midline. CARDIOVASCULAR: Regular rate and rhythm RESPIRATORY: Clear to auscultation. Breath sounds equal bilaterally. No wheezes, rales, or rhonchi. GASTROINTESTINAL: Abdomen soft, non-tender, no impact CABG tenderness. No pain out of portion exam. Bowel sounds are present. EXTREMITIES: No gross deformities. BACK: No flank tenderness. NEURO: AOx4. SKIN: Warm and dry, brisk cap refills PSYCH: Not anxious, is cooperative Initial Vital Signs Initial Vital Signs: Vital Signs Temperature 98.5 F 12/30/23 13:31 Pulse Rate 89 12/30/23 13:31 Respiratory Rate 18 12/30/23 13:31 Blood Pressure 128/79 12/30/23 13:31 Pulse Oximetry 99 12/30/23 13:31 Oxygen Delivery Method Room Air 12/30/23 13:31 Course Orders Ordered: Discontinued Medications Acetaminophen (Acetaminophen 325 Mg Tablet) 650 mg PO Q6H PRN PRN Reason: Fever/Mild Pain (1-3) Last Admin: 12/31/23 20:50 Dose: 650 mg Documented By: Admin: 12/30/23 21:22 Dose: 650 mg Documented By: Albuterol (Albuterol 2.5 Mg/3 Ml Neb (Adult)) 2.5 mg INH NOW PRN PRN Reason: Coughing, Wheezing, Dyspnea Diphenhydramine HCl (Diphenhydramine 25 Mg Tablet) 25 mg PO BEDTIME PRN PRN Reason: Insomnia Last Admin: 12/30/23 21:23 Dose: 25 mg Documented By: OMAR Sodium Chloride (Normal Saline 0.9%) 500 mls @ 1,000 mls/hr IV BOLUS ONE Stop: 12/30/23 17:36 Last Infusion: 12/30/23 18:15 Dose: Infused Documented By: Admin: 12/30/23 17:24 Dose: 1,000 mls/hr Documented By: VISH Dextrose/Sodium Chloride (Dextrose 5%-0.9% Ns) 1,000 mls @ 50 mls/hr IV CONT YAMILETH Last Infusion: 01/01/24 04:30 Dose: 50 mls/hr Documented By: Infusion: 12/31/23 23:12 Dose: 0 mls/hr Documented By: Admin: 12/31/23 19:05 Dose: 50 mls/hr Documented By: Infusion: 12/31/23 16:21 Dose: Infused Documented By: Infusion: 12/31/23 07:00 Dose: 50 mls/hr Documented By: Admin: 12/30/23 20:20 Dose: 50 mls/hr Documented By: OMAR Phytonadione 2.5 mg/ Sodium (Chloride) 100.25 mls @ 200.5 mls/hr IV NOW ONE Stop: 12/31/23 07:34 Last Infusion: 12/31/23 19:04 Dose: Infused Documented By: Admin: 12/31/23 08:01 Dose: 200.5 mls/hr Documented By: MARCELLA Lactated Ringer's (Lactated Ringers) 1,000 mls @ 42 mls/hr IV CONT [facility] Last Infusion: 01/01/24 10:00 Dose: 42 mls/hr Documented By: Admin: 01/01/24 09:58 Dose: 42 mls/hr Documented By: CHERYL Naloxone HCl (Naloxone 0.4 Mg/Ml Vial) 0.2 mg IV Q2MIN PRN PRN Reason: Opiate Reversal Ondansetron HCl (Ondansetron 4 Mg/2 Ml Inj) 4 mg IV NOW PRN PRN Reason: Nausea And Vomiting Ondansetron HCl (Ondansetron 4 Mg Odt) 4 mg SL NOW PRN PRN Reason: Nausea And Vomiting Ondansetron HCl (Ondansetron 4 Mg/2 Ml Inj) 4 mg IV NOW PRN PRN Reason: Nausea And Vomiting Pantoprazole Sodium (Pantoprazole 40 Mg Vial) 80 mg IV NOW ONE Stop: 12/30/23 13:42 Last Admin: 12/30/23 16:27 Dose: 80 mg Documented By: VISH Phytonadione (Phytonadione (Vit K1) 5 Mg Tablet) 2.5 mg PO NOW ONE Stop: 12/30/23 18:58 Last Admin: 12/30/23 20:20 Dose: 2.5 mg Documented By: OMAR Trazodone HCl (Trazodone 50 Mg Tablet) 50 mg PO BEDTIME ONE Stop: 12/31/23 20:42 Last Admin: 12/31/23 20:50 Dose: 50 mg Documented By: AT Vital Signs Vital signs: Vital Signs - 8 hr 12/30/23 13:31 12/30/23 13:39 12/30/23 16:04 Temperature 98.5 F Pulse Rate 89 80 Pulse Rate [Orthostatic Lying] Pulse Rate [Orthostatic Sitting] 92 H Pulse Rate [Orthostatic Standing] 98 H Respiratory Rate 18 Blood Pressure 128/79 Blood Pressure [Orthostatic Lying] Blood Pressure [Orthostatic Sitting] 109/70 Blood Pressure [Orthostatic Standing] 115/70 Pulse Oximetry 99 98 Oxygen Delivery Method Room Air 12/30/23 16:07 12/30/23 16:07 12/30/23 16:23 Temperature Pulse Rate 80 Pulse Rate [Orthostatic Lying] Pulse Rate [Orthostatic Sitting] Pulse Rate [Orthostatic Standing] Respiratory Rate 16 Blood Pressure 115/64 113/60 Blood Pressure [Orthostatic Lying] Blood Pressure [Orthostatic Sitting] Blood Pressure [Orthostatic Standing] Pulse Oximetry 98 Oxygen Delivery Method 12/30/23 16:23 12/30/23 16:25 12/30/23 16:25 Temperature Pulse Rate 77 83 Pulse Rate [Orthostatic Lying] Pulse Rate [Orthostatic Sitting] Pulse Rate [Orthostatic Standing] Respiratory Rate 15 21 Blood Pressure 104/65 Blood Pressure [Orthostatic Lying] Blood Pressure [Orthostatic Sitting] Blood Pressure [Orthostatic Standing] Pulse Oximetry 98 99 Oxygen Delivery Method 12/30/23 16:26 12/30/23 16:26 12/30/23 16:29 Temperature Pulse Rate 97 H Pulse Rate [Orthostatic Lying] 77 Pulse Rate [Orthostatic Sitting] 83 Pulse Rate [Orthostatic Standing] 77 Respiratory Rate 19 Blood Pressure 108/65 Blood Pressure [Orthostatic Lying] 113/60 Blood Pressure [Orthostatic Sitting] 104/65 Blood Pressure [Orthostatic Standing] 108/65 Pulse Oximetry 98 Oxygen Delivery Method 12/30/23 16:30 12/30/23 16:30 Temperature Pulse Rate 79 Pulse Rate [Orthostatic Lying] Pulse Rate [Orthostatic Sitting] Pulse Rate [Orthostatic Standing] Respiratory Rate 15 Blood Pressure 99/60 Blood Pressure [Orthostatic Lying] Blood Pressure [Orthostatic Sitting] Blood Pressure [Orthostatic Standing] Pulse Oximetry 98 Oxygen Delivery Method MDM - GI Bleed Lab Data 01/01/24 04:35 01/01/24 04:35 Labs: Lab Results 12/30/23 Range/Units 13:49 WBC 11.2 H (4.5-11.0) X10^3/uL RBC 3.81 L (4.5-5.9) X10^6/uL Hgb 11.5 L (13.5-17.5) g/dL Hct 34.2 L (41-53) % MCV 89.9 (80-100) fL MCH 30.3 (26-34) PG MCHC 33.7 (30-36) % RDW 13.4 (11.6-14.8) % Plt Count 122 L (150-400) X10^3/uL Neut % (Auto) 77.8 H (50-75) % Lymph % (Auto) 15.1 L (25-40) % [place] % (Auto) 6.3 (3-14) % Eos % (Auto) 0.3 L (2-4) % Baso % (Auto) 0.5 (0-2) % Neut # (Auto) 8800 H (6637-3003) /uL Lymph # (Auto) 1700 (0740-6226) /uL [place] # (Auto) 700 (0-900) /uL Eos # (Auto) 0 (0-450) /uL Baso # (Auto) 100 (0-100) /uL PT 30.9 H (9.4-12.5) SECONDS INR 2.7 H (0.9-1.3) APTT 43 H (25.1-36.5) SECONDS Sodium 141 (137-145) mmol/L Potassium 4.2 (3.4-5.1) mmol/L Chloride 111 H (98-107) mmol/L Carbon Dioxide 22 (22-32) mmol/L BUN 49 H (9-20) mg/dL Creatinine 0.78 (0.66-1.25) mg/dL Estimated GFR > 60 (>60) mL/min BUN/Creatinine Ratio 62.8 H (6-22) Glucose 122 H (80-110) mg/dL Calcium 9.2 (8.4-10.2) mg/dL Total Bilirubin 0.3 (0.2-1.3) mg/dL AST 29 (17-59) IU/L ALT 26 (<50) IU/L Alkaline Phosphatase 76 (38-126) U/L Total Protein 6.9 (6.3-8.2) g/dL Albumin 4.1 (3.5-5.0) g/dL Globulin 2.8 (1.7-4.1) g/dL Albumin/Globulin Ratio 1.5 (1.0-2.8) Blood Type O Positive Antibody Screen Negative Urine Dip Bedside Urine Glucose Negative Bedside Urine Bilirubin - Negative Bedside Urine Ketone - Negative Urine Specific [place] 1.025 Bedside Urine Occult Blood - Negative Bedside Urine pH 5.5 Bedside Urine Protein - Negative Bedside Urine Urobilinogen - Negative Bedside Urine Nitrite - Negative Bedside Urine Leukocytes - Negative Esterase MDM Narrative Medical decision making narrative: Patient here with . 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 Has had diaphoresis dizziness and dyspnea with this event. 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 Patient does not have recurrent atrial flutter or atrial fibrillation. Patient had colonoscopy done last year with Dr. Anders. Patient has never had GI bleed with Coumadin. Patient felt short of breath when walking downstairs. Patient has history of TAVR. After history and exam CBC CMP PT INR CT abdomen pelvis normal saline type and screen, likely admit MDM CC: GI bleed Complicating co-morbidities: Patient on Coumadin Data collected from: Patient and Medical records reviewed: No recent visit for this complaint Differential considered: Includes but not limited to upper GI bleed lower GI bleed Exam documented above, pertinent findings include: Pale conjunctiva Lab Test results independently reviewed as above. Pertinent findings: Hemoglobin 11.5 hematocrit 34.2, INR 2.7 Independently reviewed EKG sinus rhythm rate [address] elevation or depression Imaging studies independently reviewed: CT abdomen pelvis Consultations: 5:00 p.m.. Spoke with General surgery, Dr. Anders, he will follow in consult and likely do EGD tomorrow 5:[address] Lopez, hospitalist, who will see patient for admission Treatments: Protonix/normal saline Re-evaluations: Reviewed results with patient and . They do agree for admission for EGD tomorrow. Discussion: Appropriate for admission. Patient H and H is lower than baseline. Patient is symptomatic with GI bleed. Likely upper GI given BUN elevation. And color of the stool. I have reviewed with general surgery and hospitalist and agree for admission. Diagnosis: Upper GI bleed Discharge Plan Departure Patient Disposition: Admitted as Observation Clinical Impression: Acute upper gastrointestinal bleeding Admit Date/Time: 12/30/23 17:23 Admit Provider: Roderick Lopez
[2023-12-30] MEDS: SODIUM CHLORIDE 0.9% 500 ML 1000 ML IV (17:24)
--- NOTE | 2023-12-30 19:02 | P.HP_ITS ---
History of Present Illness History of Present Illness Date Patient Seen: 12/30/23 Time Patient Seen: 19:03 Chief complaint: upper GI bleed per pt Narrative: The patient is a 73-year-old male with a history of chronic Coumadin for stroke, as well as TAVR. The patient presented today with melena this morning. He has no history of GI bleeding. He did take anti-inflammatories, 1 dose 2 days ago. The patient denies any abdominal pain, or nausea, or hematemesis. He has no history of GI bleeding and denies any previous episodes of melena. He does not take iron. In the emergency department as hemoglobin was stable and his INR was 2.7. He has been on warfarin for several years. 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 He also has a history of PAF, specifically atrial flutter with a history of 1 episode of chemical cardioversion. He had some very minor dyspnea with exertion today but denies any chest pain with exertion. General surgery was consulted for consideration of endoscopy. [facility] Medical History Primary osteoarthritis involving multiple joints History of gout Hyperlipidemia type III BPH w urinary obs/LUTS Paroxysmal atrial flutter Non-rheumatic aortic stenosis Chronic insomnia Essential hypertension Chronic anticoagulation Surgical History S/P TAVR (transcatheter aortic valve replacement) Social History household members: spouse Smoking Status: Never smoker alcohol intake: current Meds Home Medications and Allergies Home Medications Medication Instructions Recorded Confirmed Type amlodipine 5 mg tablet (Norvasc) 5 mg PO QDAY ##0 12/23/16 12/30/23 History lisinopril 20 mg tablet 20 mg PO QDAY ##0 12/23/16 12/30/23 History metoprolol succinate 50 mg 50 mg PO DAILY 03/02/22 12/30/23 History tablet,extended release 24 hr warfarin 5 mg tablet 5 mg PO DAILY 03/02/22 12/30/23 History amoxicillin 500 mg capsule 2,000 mg PO .prn 09/07/22 12/30/23 History coenzyme Q10 100 mg capsule See Rx Instructions PO BID 09/07/22 12/30/23 History niacin 500 mg tablet 500 mg PO BID 09/07/22 12/30/23 History omega 3 1,000 mg PO DAILY 09/07/22 12/30/23 History rosuvastatin 40 mg tablet 20 mg PO Q OTHER DAY 09/07/22 12/30/23 History Allergies Allergy/AdvReac Type Severity Reaction Status Date / Time No Known Allergies Allergy Unknown Verified 12/30/23 17:20 Review of Systems Review of Systems Narrative: All else reviewed and otherwise unremarkable except as noted in the history and physical. Exam Vital Signs (past 8 hours): - 12/30/23 13:31 12/30/23 13:39 12/30/23 16:04 Temperature 98.5 F Pulse Rate 89 80 Pulse Rate [Orthostatic Lying] Pulse Rate [Orthostatic Sitting] 92 H Pulse Rate [Orthostatic Standing] 98 H Respiratory Rate 18 Blood Pressure 128/79 Blood Pressure [Orthostatic Lying] Blood Pressure [Orthostatic Sitting] 109/70 Blood Pressure [Orthostatic Standing] 115/70 Pulse Oximetry 99 98 Oxygen Delivery Method Room Air 12/30/23 16:07 12/30/23 16:07 12/30/23 16:23 Temperature Pulse Rate 80 Pulse Rate [Orthostatic Lying] Pulse Rate [Orthostatic Sitting] Pulse Rate [Orthostatic Standing] Respiratory Rate 16 Blood Pressure 115/64 113/60 Blood Pressure [Orthostatic Lying] Blood Pressure [Orthostatic Sitting] Blood Pressure [Orthostatic Standing] Pulse Oximetry 98 Oxygen Delivery Method 12/30/23 16:23 12/30/23 16:25 12/30/23 16:25 Temperature Pulse Rate 77 83 Pulse Rate [Orthostatic Lying] Pulse Rate [Orthostatic Sitting] Pulse Rate [Orthostatic Standing] Respiratory Rate 15 21 Blood Pressure 104/65 Blood Pressure [Orthostatic Lying] Blood Pressure [Orthostatic Sitting] Blood Pressure [Orthostatic Standing] Pulse Oximetry 98 99 Oxygen Delivery Method 12/30/23 16:26 12/30/23 16:26 12/30/23 16:29 Temperature Pulse Rate 97 H Pulse Rate [Orthostatic Lying] 77 Pulse Rate [Orthostatic Sitting] 83 Pulse Rate [Orthostatic Standing] 77 Respiratory Rate 19 Blood Pressure 108/65 Blood Pressure [Orthostatic Lying] 113/60 Blood Pressure [Orthostatic Sitting] 104/65 Blood Pressure [Orthostatic Standing] 108/65 Pulse Oximetry 98 Oxygen Delivery Method 12/30/23 16:30 12/30/23 16:30 12/30/23 16:42 Temperature Pulse Rate 79 77 Pulse Rate [Orthostatic Lying] Pulse Rate [Orthostatic Sitting] Pulse Rate [Orthostatic Standing] Respiratory Rate 15 22 Blood Pressure 99/60 Blood Pressure [Orthostatic Lying] Blood Pressure [Orthostatic Sitting] Blood Pressure [Orthostatic Standing] Pulse Oximetry 98 100 Oxygen Delivery Method 12/30/23 16:42 12/30/23 16:45 12/30/23 16:45 Temperature Pulse Rate 75 Pulse Rate [Orthostatic Lying] Pulse Rate [Orthostatic Sitting] Pulse Rate [Orthostatic Standing] Respiratory Rate 16 Blood Pressure 113/75 116/74 Blood Pressure [Orthostatic Lying] Blood Pressure [Orthostatic Sitting] Blood Pressure [Orthostatic Standing] Pulse Oximetry 100 Oxygen Delivery Method 12/30/23 17:00 12/30/23 17:00 12/30/23 17:15 Temperature Pulse Rate 77 81 Pulse Rate [Orthostatic Lying] Pulse Rate [Orthostatic Sitting] Pulse Rate [Orthostatic Standing] Respiratory Rate 24 18 Blood Pressure 100/54 L Blood Pressure [Orthostatic Lying] Blood Pressure [Orthostatic Sitting] Blood Pressure [Orthostatic Standing] Pulse Oximetry 99 97 Oxygen Delivery Method 12/30/23 17:15 12/30/23 17:32 12/30/23 17:50 Temperature Pulse Rate 77 Pulse Rate [Orthostatic Lying] Pulse Rate [Orthostatic Sitting] Pulse Rate [Orthostatic Standing] Respiratory Rate 19 Blood Pressure 103/62 129/64 Blood Pressure [Orthostatic Lying] Blood Pressure [Orthostatic Sitting] Blood Pressure [Orthostatic Standing] Pulse Oximetry 97 Oxygen Delivery Method 12/30/23 17:50 12/30/23 18:00 12/30/23 18:00 Temperature Pulse Rate 83 80 Pulse Rate [Orthostatic Lying] Pulse Rate [Orthostatic Sitting] Pulse Rate [Orthostatic Standing] Respiratory Rate 17 18 Blood Pressure 110/59 L Blood Pressure [Orthostatic Lying] Blood Pressure [Orthostatic Sitting] Blood Pressure [Orthostatic Standing] Pulse Oximetry 98 99 Oxygen Delivery Method Oxygen Delivery Method Room Air Narrative Exam Narrative: NAD, alert and oriented, fluent speech, calm. Normocephalic skull, EOMI, anicteric sclera, symmetric pupils. Oropharynx unremarkable, no droop. Neck supple, midline trachea, no adenopathy. Lungs clear, normal rate and effort. Heart regular, 3/6 murmur and no gallop or rub. Abdomen is soft, non distended and non tender. Extremities are free of edema. Skin is free of rash or lesions. Joints are not swollen or deformed. Judgment appears to be normal. Objective Labs 12/30/23 13:49 12/30/23 13:49 Labs: Laboratory Results - last 24 hr 12/30/23 13:49 WBC 11.2 H RBC 3.81 L Hgb 11.5 L Hct 34.2 L MCV 89.9 MCH 30.3 MCHC 33.7 RDW 13.4 Plt Count 122 L Neut % (Auto) 77.8 H Lymph % (Auto) 15.1 L [place] % (Auto) 6.3 Eos % (Auto) 0.3 L Baso % (Auto) 0.5 Neut # (Auto) 8800 H Lymph # (Auto) 1700 [place] # (Auto) 700 Eos # (Auto) 0 Baso # (Auto) 100 PT 30.9 H INR 2.7 H APTT 43 H Sodium 141 Potassium 4.2 Chloride 111 H Carbon Dioxide 22 BUN 49 H Creatinine 0.78 Estimated GFR > 60 BUN/Creatinine Ratio 62.8 H Glucose 122 H Calcium 9.2 Total Bilirubin 0.3 AST 29 ALT 26 Alkaline Phosphatase 76 Total Protein 6.9 Albumin 4.1 Globulin 2.8 Albumin/Globulin Ratio 1.5 Blood Type O Positive Antibody Screen Negative Assessment & Plan Assessment & Plan narrative: 1. Upper GI bleed with melena, present on admission and active. 2. Chronic anticoagulation for atrial flutter, present on admission and active. 3. Aortic stenosis with history of TAVR. Stable. 4. Hyperlipidemia, present on admission and stable. 5. Essential hypertension, present on admission and stable. 6. BPH, present on admission and stable. Plan: -NPO except ice, and medications. Hemoglobin at 2:00 a.m. in the morning. We will do a partial reversal 2.5 mg of vitamin K p.o. and repeat a protime in the morning. Dr. Ferrari will see in consultation for probable endoscopy. Anticipate use of blood products if the patient had significant blood loss anemia. We will hold blood pressure medications and monitor until morning. He is full resuscitation, confirmed tonight. His is proxy decision maker. Time Spent With Patient Time with patient: less than 30 minutes Quality VTE Deep Vein Thrombosis/Pulmonary Embolism Present on Admission: No MIPS - Admit I confirm the patient?s Advance Care Plan is present, Code status is documented, Surrogate decision maker is in patient?s record [If Yes, STOP here]: Yes MIPS - Meds 'Current medications' to include all prescriptions, [id number] products, herbals, cannabis/cannabidiol products, and vitamin/mineral/dietary (nutritional) supplements. I have utilized all available resources to obtain, update, or review the patient?s current medications. [If Yes, STOP here]: Yes
[2023-12-30] MEDS: DEXTROSE 5%-0.9% NS 1,000 ML 50 ML IV (20:20)
[2023-12-30] MEDS: PHYTONADIONE (VIT K1) 5 MG TABLET 2.5 MG PO (20:20)
[2023-12-30] MEDS: ACETAMINOPHEN 325 MG TABLET 650 MG PO (21:22)
[2023-12-30] MEDS: diphenhydrAMINE 25 MG TABLET PO (21:23)
[2023-12-31] VITALS: BP 115/66; PULSE 70; RESP 16; TEMP 36.3; O2SAT 98
[2023-12-31 03:30] VITALS: BP 115/66; PULSE 70; RESP 16; TEMP 36.3; O2SAT 98
[2023-12-31 05:55] LABS: Add Manual Diff / Slide Review NO; Basophils Absolute Auto 100 /uL (0-100); Basophils Percent Auto 0.8 % (0-2); Eosinophils Absolute Auto 200 /uL (0-450); Eosinophils Percent Auto 2.2 % (2-4); Hemoglobin 10.7 g/dL (13.5-17.5); Lymphocytes Absolute Auto 2200 /uL (1100-4500); Lymphocytes Percent Auto 31.5 % (25-40); Mean Corpuscular HGB Conc 34.5 % (30-36); Mean Corpuscular Hemoglobin 31.4 PG (26-34); Mean Corpuscular Volume 90.9 fL (80-100); Monocytes Absolute Auto 600 /uL (0-900); Monocytes Percent Auto 9.3 % (3-14); Neutrophils Absolute Auto 3900 /uL (1500-7000); Neutrophils Percent Auto 56.2 % (50-75); Platelet Count 105 X10^3/uL (150-400); Red Blood Cell Count 3.41 X10^6/uL (4.5-5.9); Red Cell Distribution Width 13.6 % (11.6-14.8); White Blood Cell Count 6.9 X10^3/uL (4.5-11.0)
[2023-12-31 06:04] LABS: INR 2.4 (0.9-1.3); Prothrombin Time 28.1 SECONDS (9.4-12.5)
[2023-12-31 06:06] LABS: BUN Creatinine Ratio 36.1 (6-22); Blood Urea Nitrogen 26 mg/dL (9-20); Calcium 8.9 mg/dL (8.4-10.2); Carbon Dioxide 26 mmol/L (22-32); Chloride 112 mmol/L (98-107); Estimated Glomerular Filt Rate > 60 mL/min (>60); Glucose 106 mg/dL (80-110); HEMOLYSIS < 15 (0-50); Potassium 4.2 mmol/L (3.4-5.1); Sodium 142 mmol/L (137-145)
[2023-12-31 06:08] LABS: Cholesterol 134 mg/dL (140-199); HDL Cholesterol 52 mg/dL (40-60); LDL Cholesterol Calculated 45 mg/dL (<100); Triglycerides 185 mg/dL (35-150)
[2023-12-31 08:00] VITALS: BP 106/76; PULSE 76; RESP 16; TEMP 36.3; O2SAT 97
[2023-12-31] MEDS: SODIUM CHLORIDE 0.9% IV (08:01)
[2023-12-31] MEDS: PHYTONADIONE IV (08:01)
[2023-12-31 10:21] LABS: INR 2.1 (0.9-1.3); Prothrombin Time 23.7 SECONDS (9.4-12.5)
--- NOTE | 2023-12-31 10:28 | P.PN_ITS ---
Subjective Subjective Interval history: Doing well overnight, no abdominal pain or bowel movement. H&H is stable. Protime 2.4 after vitamin K oral. Exam Vital Signs (past 8 hours): - 12/31/23 03:30 12/31/23 08:00 Temperature 97.3 F L 97.3 F L Pulse Rate 70 76 Respiratory Rate 16 16 Blood Pressure 115/66 106/76 Pulse Oximetry 98 97 Oxygen Flow Rate 0 0 Oxygen Delivery Method Room Air Oxygen Flow Rate 0 Narrative Exam Narrative: NAD, alert and oriented. Fluent speech. Lungs are clear, normal rate and effort. Heart is regular, no murmur gallop or rub. Abdomen is soft, non distended. Extremities are free of edema. Objective Labs 12/31/23 05:40 12/31/23 05:40 Labs: Laboratory Results - last 24 hr 12/30/23 12/31/23 12/31/23 13:49 05:40 10:01 WBC 11.2 H 6.9 RBC 3.81 L 3.41 L Hgb 11.5 L 10.7 L Hct 34.2 L 31.0 L MCV 89.9 90.9 MCH 30.3 31.4 MCHC 33.7 34.5 RDW 13.4 13.6 Plt Count 122 L 105 L Neut % (Auto) 77.8 H 56.2 D Lymph % (Auto) 15.1 L 31.5 [place] % (Auto) 6.3 9.3 Eos % (Auto) 0.3 L 2.2 Baso % (Auto) 0.5 0.8 Neut # (Auto) 8800 H 3900 Lymph # (Auto) 1700 2200 [place] # (Auto) 700 600 Eos # (Auto) 0 200 Baso # (Auto) 100 100 PT 30.9 H 28.1 H 23.7 H INR 2.7 H 2.4 H 2.1 H APTT 43 H Sodium 141 142 Potassium 4.2 4.2 Chloride 111 H 112 H Carbon Dioxide 22 26 BUN 49 H 26 H Creatinine 0.78 0.72 Estimated GFR > 60 > 60 BUN/Creatinine Ratio 62.8 H 36.1 H Glucose 122 H 106 Calcium 9.2 8.9 Total Bilirubin 0.3 AST 29 ALT 26 Alkaline Phosphatase 76 Total Protein 6.9 Albumin 4.1 Globulin 2.8 Albumin/Globulin Ratio 1.5 Triglycerides 185 H Cholesterol 134 L LDL Cholesterol, Calc 45 HDL Cholesterol 52 Blood Type O Positive Antibody Screen Negative [facility] Medical History Primary osteoarthritis involving multiple joints History of gout Hyperlipidemia type III BPH w urinary obs/LUTS Paroxysmal atrial flutter Non-rheumatic aortic stenosis Chronic insomnia Essential hypertension Chronic anticoagulation Surgical History S/P TAVR (transcatheter aortic valve replacement) Social History household members: spouse Smoking Status: Never smoker alcohol intake: current Assessment & Plan Assessment & Plan narrative: 1. Upper GI bleed with melena, present on admission and active. 2. Chronic anticoagulation for atrial flutter (warfarin), present on admission and active. 3. Aortic stenosis with history of TAVR. Stable. 4. Hyperlipidemia, present on admission and stable. 5. Essential hypertension, present on admission and stable. 6. BPH, present on admission and stable. Plan: -NPO except ice, and medications. -IV Vit K and repeat INR later AM. Discussed with Dr Anders, goal is INR of about 1.5 prior to EGD which will likely be Wednesday on December 31. -serial hemoglobin, Anticipate use of blood products if the patient had significant blood loss anemia. We will hold blood pressure medications and monitor.. He is full resuscitation, confirmed tonight. His is proxy decision maker. Quality VTE Deep Vein Thrombosis/Pulmonary Embolism Present on Admission: No
[2023-12-31 12:00] VITALS: BP 134/74; PULSE 87; RESP 16; TEMP 36.2; O2SAT 98
--- NOTE | 2023-12-31 13:33 | CM.DANOTE ---
Initial DCP Assessment Visit Note Reviewed EMR and team rounds for pt's medical status and updates. Met with pt at bedside to introduce self and role, pt was found to be sitting on the edge of the bed, alert/oriented, and able to discuss concerns/plan for care/preferences. Pt resides independently at baseline with his here in [place], and is well known in the community. Payor: [facility] PCP: Dr. 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 He states that he became short of breath and diaphoretic during when this was happening. CT imaging in the ED was negative for a bowel obstruction, however pt's H&H was low and the overall constellation is an active GI bleed. Surgery was consulted for further eval. Plan was made to admit pt and perform an exploratory endoscopy. Unfortunately, pt's protime was too low to complete this procedure today, so pt will be allowed ice chips and water today, otherwise NPO, and they will plan for the endoscopy tomorrow. Pt was agreeable and understanding of this plan. DCP will continue to follow and assist with any evolving d/c needs/resources for eventual d/c home. Discharge Planning/Care Management CM Discharge Assessment Start: 12/31/23 13:31 Freq: Status: Active Protocol: Document 12/31/23 13:31 DPL (Rec: 12/31/23 13:33 DPL [id number]) Discharge Planning Assessment Assigned Tinning Equipment Tender RICH Christensen Advance Directives? Yes Advance Directives on File No History Provided By Patient,Medical Record Has Patient been admitted in last 30 No days? Prior Living Arrangements House Household Members spouse Type of transporation used prior to Drives own vehicle admit Independent with ADL's Yes Is patient alert and oriented? Yes Caregiver for Another No Comment No anticipated home d/c needs anticipated at this time. Barriers to Discharge No Discharge Plan Home Transportation Arrangement Spouse Referrals Initiated None needed Whiteboard Updated in Patient Room with Yes name and ext. # of Tinning Equipment Tender Review Status In Process Please Provide Date Initial DC 12/31/23 Assessment Was Performed
[2023-12-31 16:00] VITALS: BP 106/60; PULSE 78; RESP 16; TEMP 36.6; O2SAT 99
[2023-12-31 17:40] LABS: INR 1.6 (0.9-1.3); Prothrombin Time 18.9 SECONDS (9.4-12.5)
[2023-12-31 18:38] LABS: Hematocrit 31.2 % (41-53); Hemoglobin 10.6 g/dL (13.5-17.5)
[2023-12-31] MEDS: DEXTROSE 5%-0.9% NS 1,000 ML 50 ML IV (19:05)
[2023-12-31 20:00] VITALS: BP 126/78; PULSE 82; RESP 18; TEMP 36.3; O2SAT 98
[2023-12-31] MEDS: TRAZODONE 50 MG TABLET PO (20:50)
[2023-12-31] MEDS: ACETAMINOPHEN 325 MG TABLET 650 MG PO (20:50)
--- NOTE | 2023-12-31 23:10 | PC.NURSE ---
Pt wanted IVF off I can't sleep with the noise. Disconnected IVF and flushed IV with normal saline flush.
--- NOTE | 2024-01-01 | PATH_ITS ---
[facility] Accession Number: [id number] No. of containers..02 Tissue . 01 Material submitted: . PART A: duodenum - DUODENUM RANDOM PART B: gastrointestinal site - STOMACH, ANTRUM RANDOM . 01 Diagnosis: Part A: DUODENUM RANDOM: Duodenal mucosa with no diagnostic alterations. No active inflammation and no evidence of celiac disease. . Part B: STOMACH, ANTRUM RANDOM : Helicobacter pylori gastritis. No intestinal metaplasia, dysplasia, or malignancy identified. [facility] 01/06/2024 1541 Local . 01 Comment: Part B: An immunohistochemical stain was performed, revealing the presence of Helicobacter organisms. The control stains appropriately. * This test was developed and its performance characteristics determined by [facility]. It has not been cleared or approved by the U.S. Food and Drug Administration. The FDA has determined that such clearance or approval is not necessary. This test is used for clinical purposes. It should not be regarded as investigational or for research. . 01 Electronically signed: . Capo Jeong MD, Pathologist NPI- [id number] . 01 Gross description: . Part A: DUODENUM RANDOM: Received in formalin are 2 fragment(s) of steward, soft tissue measuring 0.1 x 0.1 x 0.1 cm to 0.3 x 0.2 x 0.2 cm submitted entirely in 1 cassette(s) . Part B: ANTRUM RANDOM : Received in formalin are multiple fragment(s) of steward, soft tissue measuring 0.1 x 0.1 x 0.1 cm to 0.4 x 0.4 x 0.2 cm submitted entirely in 1 cassette(s) /[facility] 01/06/2024 1540 Local . 01 Pathologist provided ICD-10: B96.81 . 01 CPT . 134691, [id number] Specimen Comment: A courtesy copy of this report has been sent to [phone] Performed at: 01 [facility] [address] [place] [address], [place], [place] [id number] MD Capo Jeong MD Phone: [phone]
[2024-01-01 04:00] VITALS: BP 133/74; PULSE 75; RESP 18; TEMP 35.7; O2SAT 97
[2024-01-01 05:46] LABS: Add Manual Diff / Slide Review NO; Basophils Absolute Auto 0 /uL (0-100); Basophils Percent Auto 0.6 % (0-2); Eosinophils Absolute Auto 100 /uL (0-450); Hematocrit 28.8 % (41-53); Hemoglobin 9.9 g/dL (13.5-17.5); Lymphocytes Absolute Auto 2100 /uL (1100-4500); Lymphocytes Percent Auto 31.1 % (25-40); Mean Corpuscular HGB Conc 34.3 % (30-36); Mean Corpuscular Volume 90.5 fL (80-100); Monocytes Absolute Auto 600 /uL (0-900); Monocytes Percent Auto 9.1 % (3-14); Neutrophils Absolute Auto 3800 /uL (1500-7000); Neutrophils Percent Auto 57.2 % (50-75); Platelet Count 100 X10^3/uL (150-400); Red Blood Cell Count 3.18 X10^6/uL (4.5-5.9); Red Cell Distribution Width 13.6 % (11.6-14.8); White Blood Cell Count 6.7 X10^3/uL (4.5-11.0)
[2024-01-01 06:03] LABS: INR 1.4 (0.9-1.3); Prothrombin Time 15.6 SECONDS (9.4-12.5)
[2024-01-01 06:12] LABS: BUN Creatinine Ratio 18.5 (6-22); Blood Urea Nitrogen 12 mg/dL (9-20); Calcium 8.9 mg/dL (8.4-10.2); Carbon Dioxide 26 mmol/L (22-32); Chloride 112 mmol/L (98-107); Estimated Glomerular Filt Rate > 60 mL/min (>60); Glucose 88 mg/dL (80-110); HEMOLYSIS < 15 (0-50); Potassium 3.8 mmol/L (3.4-5.1); Sodium 142 mmol/L (137-145)
[2024-01-01 08:00] VITALS: BP 133/84; PULSE 99; RESP 16; TEMP 36.1; O2SAT 98
[2024-01-01 09:05] VITALS: BMI 27.8
--- NOTE | 2024-01-01 09:09 | PM.CN ---
History of Present Illness Consult details Date Patient Seen: 01/01/24 Time Patient Seen: 09:09 Chief complaint: upper GI bleed per pt Narrative: Anam is a 73-year-old man who presents with melena morning. He also had some dyspnea walking down stairs. He has never had an EGD before. He had a colonoscopy last year with 3 polyps removed. He does take Coumadin for atrial fibrillation. He has had a TAVR. No prior GI bleed history. He has not had any more bowel movements since . Hemoglobin this morning was 9.9. Meds Home Medications and Allergies Home Medications Medication Instructions Recorded Confirmed Type amlodipine 5 mg tablet (Norvasc) 5 mg PO QDAY ##0 12/23/16 12/30/23 History lisinopril 20 mg tablet 20 mg PO QDAY ##0 12/23/16 12/30/23 History metoprolol succinate 50 mg 50 mg PO DAILY 03/02/22 12/30/23 History tablet,extended release 24 hr warfarin 5 mg tablet 5 mg PO DAILY 03/02/22 12/30/23 History amoxicillin 500 mg capsule 2,000 mg PO .prn 09/07/22 12/30/23 History coenzyme Q10 100 mg capsule See Rx Instructions PO BID 09/07/22 12/30/23 History niacin 500 mg tablet 500 mg PO BID 09/07/22 12/30/23 History omega 3 1,000 mg PO DAILY 09/07/22 12/30/23 History rosuvastatin 40 mg tablet 20 mg PO Q OTHER DAY 09/07/22 12/30/23 History Allergies Allergy/AdvReac Type Severity Reaction Status Date / Time No Known Allergies Allergy Unknown Verified 12/30/23 17:20 Exam Vital Signs (past 8 hours): - 01/01/24 04:00 Temperature 96.3 F L Pulse Rate 75 Respiratory Rate 18 Blood Pressure 133/74 Pulse Oximetry 97 Oxygen Flow Rate 0 Oxygen Delivery Method Room Air Oxygen Flow Rate 0 Const General: No acute distress Resp Effort & Inspection: normal respiratory effort Objective Labs 01/01/24 04:35 01/01/24 04:35 Labs: Laboratory Results - last 24 hr 12/31/23 12/31/23 01/01/24 10:01 17:25 04:35 WBC 6.7 RBC 3.18 L Hgb 10.6 L 9.9 L Hct 31.2 L 28.8 L MCV 90.5 MCH 31.0 MCHC 34.3 RDW 13.6 Plt Count 100 L Neut % (Auto) 57.2 Lymph % (Auto) 31.1 [place] % (Auto) 9.1 Eos % (Auto) 2.0 Baso % (Auto) 0.6 Neut # (Auto) 3800 Lymph # (Auto) 2100 [place] # (Auto) 600 Eos # (Auto) 100 Baso # (Auto) 0 PT 23.7 H 18.9 H 15.6 H INR 2.1 H 1.6 H 1.4 H Sodium 142 Potassium 3.8 Chloride 112 H Carbon Dioxide 26 BUN 12 Creatinine 0.65 L Estimated GFR > 60 BUN/Creatinine Ratio 18.5 Glucose 88 Calcium 8.9 PFSH Medical History Primary osteoarthritis involving multiple joints History of gout Hyperlipidemia type III BPH w urinary obs/LUTS Paroxysmal atrial flutter Non-rheumatic aortic stenosis Chronic insomnia Essential hypertension Chronic anticoagulation Surgical History S/P TAVR (transcatheter aortic valve replacement) Social History household members: spouse Tobacco & Substance Use Smoking Status: Never smoker alcohol intake: current Assessment & Plan Assessment and plan (1) Melena: Status: Acute Plan Plan to proceed with EGD to rule out a source of upper GI bleeding.
[2024-01-01 09:39] VITALS: BP 102/74; PULSE 81; RESP 16; TEMP 36.8; O2SAT 96
[2024-01-01 09:44] VITALS: BP 102/71; PULSE 77; RESP 13; O2SAT 96
--- NOTE | 2024-01-01 09:49 | PM.OP.EGD ---
Operative Date/Time/Diagnoses Date of procedure: 01/01/24 Time of procedure: 09:49 Pre-op diagnosis: Melena Post-op diagnosis: same Procedure & Clinicians Study performed: Esophagogastroduodenoscopy Same procedure as scheduled: Yes Surgeon: Bernabe Evangelista Procedure Notes Procedure in detail: Surgeon: Bernabe Evangelista MD Anesthesia: Amber Carvajal D.O. A timeout was performed. A bite blocked was placed. The patient was positioned in the left lateral decubitus position. Anesthesia was administered. The endoscope was inserted through the bite block and passed through the esophagus and stomach and into the duodenum. There was some mild duodenitis in the first and second portion. Random biopsies were taken from duodenal mucosa with cold forceps. The scope was withdrawn into the stomach. There was mild antritis and some small shallow antral ulcers. Random biopsies were taken with cold forceps. The rest of the stomach was normal. The scope was retroflexed and no hiatal hernia was seen. The scope was withdrawn into the esophagus and no abnormalities were seen. The remainder of the esophagus was normal. The scope was withdrawn. The patient was awakened and brought to recovery. Sedation time: 7 minutes Findings: Mild antritis, mild duodenitis and multiple small shallow antral ulcers Post-procedure Disposition: PACU
[2024-01-01 09:50] VITALS: BP 112/77; PULSE 73; RESP 13; O2SAT 96
[2024-01-01] MEDS: LACTATED RINGERS 1,000 ML 42 ML IV (09:58)
--- NOTE | 2024-01-01 11:11 | CM.DPC ---
DCP Cont. Reviewed EMR and team rounds for status updates. Pt was brought to the OR this morning and EGD was completed. No abnormalities were found. Plan will be to advance to clears and diet tolerance, possible d/c either later this evening or tomorrow. Family will transport once he's medically cleared. Will continue to follow for any further evolving home d/c needs.
--- NOTE | 2024-01-01 20:06 | P.DS_ITS ---
History of Present Illness History of Present Illness Chief complaint: upper GI bleed per pt Narrative: Per history and physical: The patient is a 73-year-old male with a history of chronic Coumadin for stroke, as well as TAVR. The patient presented today with melena this morning. He has no history of GI bleeding. He did take anti-inflammatories, 1 dose 2 days ago. The patient denies any abdominal pain, or nausea, or hematemesis. He has no history of GI bleeding and denies any previous episodes of melena. He does not take iron. In the emergency department as hemoglobin was stable and his INR was 2.7. He has been on warfarin for several years. 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 He also has a history of PAF, specifically atrial flutter with a history of 1 episode of chemical cardioversion. He had some very minor dyspnea with exertion today but denies any chest pain with exertion. General surgery was consulted for consideration of endoscopy. Discharge Providers Provider Date of admission: 12/30/23 17:23 Discharge Date: 01/01/24 Primary care physician: Harsh Alexander MD Discharge provider: Dang Beckman MD Summary Hospital Course Discharge Diagnosis: 1. Mild duodenitis/antritis/antral ulcers 2. Acute blood loss anemia 3. Chronic anticoagulation 4. paroxysmal a flutter 5. HTN 6. HLD Hospital Course: Patient is a 73-year-old gentleman on chronic warfarin anticoagulation for previous stroke (embolic stroke versus retinal artery thrombosis), paroxysmal atrial flutter. He also has a prior TAVR. He presented to the hospital with melena. He received vitamin K but on the day following admission his INR remained elevated. He received additional vitamin K and his INR was under 1.5 by the date of discharge. EGD was done which revealed duodenitis/antritis and several antral ulcers but no active bleeding. His hemoglobin did decrease from 11.5-9.9 during his hospitalization. However he remained above the threshold for transfusion. His platelet count was mildly decreased at 100 which was felt to be secondary to GI bleeding. Patient was placed on an oral PPI b.i.d., was given instructions to hold warfarin for the next 2 weeks, initiate iron therapy, follow-up with his PCP and obtain follow-up CBC in 4 weeks' time. He is discharged in stable condition. Status at Discharge Cognitive/behavioral status at discharge: at baseline, oriented Functional status at discharge: independent ambulation Overall status at discharge: patient is progressing back to baseline Time Spent with Patient Time spent: Greater than 30 minutes Exam Vital Signs (past 8 hours): Oxygen Delivery Method Room Air Oxygen Flow Rate 0 Narrative Exam Narrative: GEN: Delightful elderly gentleman, Alert and oriented x 3, NAD HEENT:NC, Face symmetric CHEST: Respiratory excursions symmetric, CTAB CV: RRR, no R/G, there is a 2/6 systolic murmur heard best in the left axilla ABD: Soft, NT/ND, BT present in all 4 quadrants, no organomegaly or masses EXTR: warm, well perfused, no C/C, trace right lower extremity edema SKIN: warm and dry, no rash NEURO: Alert and oriented x 3, nonfocal Objective Labs 01/01/24 04:35 01/01/24 04:35 Labs: Laboratory Results - last 24 hr 01/01/24 04:35 WBC 6.7 RBC 3.18 L Hgb 9.9 L Hct 28.8 L MCV 90.5 MCH 31.0 MCHC 34.3 RDW 13.6 Plt Count 100 L Neut % (Auto) 57.2 Lymph % (Auto) 31.1 Tompkins % (Auto) 9.1 Eos % (Auto) 2.0 Baso % (Auto) 0.6 Neut # (Auto) 3800 Lymph # (Auto) 2100 [place]pkins # (Auto) 600 Eos # (Auto) 100 Baso # (Auto) 0 PT 15.6 H INR 1.4 H Sodium 142 Potassium 3.8 Chloride 112 H Carbon Dioxide 26 BUN 12 Creatinine 0.65 L Estimated GFR > 60 BUN/Creatinine Ratio 18.5 Glucose 88 Calcium 8.9 PFSH Medical History Primary osteoarthritis involving multiple joints History of gout Hyperlipidemia type III BPH w urinary obs/LUTS Paroxysmal atrial flutter Non-rheumatic aortic stenosis Chronic insomnia Essential hypertension Chronic anticoagulation Surgical History S/P TAVR (transcatheter aortic valve replacement) Social History household members: spouse Smoking Status: Never smoker alcohol intake: current Discharge Plan Discharge Plan Patient Disposition: Home Provider Discharge Comment: You were found to have mild duodenitis and antritis as well as multiple small antral ulcers w/o active bleeding. Take Protonix (pantoprazole) 40 mg twice daily x12 weeks, then once daily. Restart coumadin in 2 weeks. Resume PT/INR monitoring as you were before within 3 days of resuming coumadin. Take OTC ferrous gluconate 325 mg daily to help build your iron stores back up. I recommend a follow up CBC in 4 weeks (through your PCP). Monitor your BP. When your SBP is above 130, restart your metoprolol When your SBP is at or above 140, restart your lisinopril. Return to the ED: Inability to hold down food/fluids Black/tarry stool Vomiting blood/coffee grounds Any new neurologic symptoms Discharge orders & Medications Prescriptions: New pantoprazole 40 mg tablet,delayed release (DR/EC) 40 mg PO BID Qty: 60 3RF Continued lisinopril 20 MG tablet 20 mg PO QDAY Qty: 0 amlodipine [Norvasc] 5 MG tablet 5 mg PO QDAY Qty: 0 metoprolol succinate 50 mg tablet extended release 24 hr 50 mg PO DAILY warfarin 5 mg tablet 5 mg PO DAILY Rx Instructions: 7.5 mg on Tuesdays and 5 mg all other days. rosuvastatin 40 mg tablet 20 mg PO Q OTHER DAY amoxicillin 500 mg capsule 2,000 mg PO .prn Patient Comments: TAKE FOUR CAPSULES BY MOUTH ONE HOUR BEFORE DENTAL APPOINTMENT Rx Instructions: TAKE FOUR CAPSULES BY MOUTH ONE HOUR BEFORE DENTAL APPOINTMENT omega 3 1,000 mg solution 1,000 mg PO DAILY niacin 500 mg tablet 500 mg PO BID coenzyme Q10 100 mg capsule See Rx Instructions PO BID Rx Instructions: 100 mg in am and 200 mg in pm. Follow up/Referrals: Harsh Alexander MD [Primary Care Provider] - Diet/Activity/Treatments Diet: Diet as Tolerated Activity: As tolerated Oxygen: N/A Visit Report/Discharge Packet Instructions: DI for Gastritis, DI for Gastric Ulcer Stand Alone Forms: Patient Portal/API, Stroke Signs & Symptoms, EGD Result: Isld Surg Discharge Data Primary Care Provider: Harsh Alexander V Attending Provider: Roderick Lopez Admit Date/Time: 12/30/23 17:23 Quality VTE Deep Vein Thrombosis/Pulmonary Embolism Present on Admission: No
== END 2024-01-01 13:37 | disposition home or self-care (01) ==
LOC: ED 17:23 → AC 17:24
PROVIDERS: Surgery; Admitting Provider Hospitalist; Emergency Provider Emergency Medicine; Family Provider Internal Medicine; PCP Internal Medicine; Referring Provider Emergency Medicine; Visit Provider Hospitalist
PROC: 0DJ08ZZ Inspection of Upper Intestinal Tract, Via Natural or Artificial Opening Endoscopic (ICD-10-PCS; CPT 43235; principal; 2024-01-01 09:30)
DX: K29.50 Unspecified chronic gastritis without bleeding (principal); K29.80 Duodenitis without bleeding; K25.3 Acute gastric ulcer without hemorrhage or perforation; Z79.01 Long term (current) use of anticoagulants; I48.0 Paroxysmal atrial fibrillation; I10 Essential (primary) hypertension; E78.5 Hyperlipidemia, unspecified
CPT/HCPCS: 43239; 36415; 74177; 80048; 80053; 80061; 81003; 85014; 85018; 85025; 85610; 85730; 86850; 86900; 86901; 93005; 93010; 96361; 96374; 99284; G0378; C9113; J2704; J3430

== ENCOUNTER → 2024-01-07 07:00 | Outpatient (CLI) | payer OTHER, SELFPAY ==
[2024-01-04 10:19] VITALS: BMI 27.8
[2024-01-07 07:52] LABS: Hematocrit 30.8 % (41-53); Hemoglobin 10.6 g/dL (13.5-17.5); Mean Corpuscular HGB Conc 34.3 % (30-36); Mean Corpuscular Hemoglobin 30.5 PG (26-34); Mean Corpuscular Volume 88.9 fL (80-100); Platelet Count 155 X10^3/uL (150-400); Red Blood Cell Count 3.46 X10^6/uL (4.5-5.9); Red Cell Distribution Width 13.5 % (11.6-14.8); White Blood Cell Count 9.1 X10^3/uL (4.5-11.0)
[2024-01-07 08:03] LABS: HEMOLYSIS < 15 (0-50); Iron 32 ug/dL (49-181); Reticulocyte Count, Percent 3.9 % (0.9-2.6)
[2024-01-07 08:15] LABS: Percent Iron Saturation 9 % (20-50); Total Iron Binding Capacity 337 ug/dL (261-462); Transferrin 273 mg/dL (206-381)
[2024-01-07 08:37] LABS: Ferritin 23 ng/mL (18-464)
== END ==
PROVIDERS: Family Provider Internal Medicine; PCP Internal Medicine; Referring Provider Internal Medicine; Visit Provider Internal Medicine
DX: D64.9 Anemia, unspecified (principal); K92.2 Gastrointestinal hemorrhage, unspecified; N40.1 Benign prostatic hyperplasia with lower urinary tract symptoms; N13.8 Other obstructive and reflux uropathy
CPT/HCPCS: 36415; 82728; 83540; 83550; 84153; 85027; 85045

== ENCOUNTER → 2024-02-07 07:15 | Outpatient (CLI) | payer OTHER, SELFPAY ==
[2024-01-04 10:19] VITALS: BMI 27.8
[2024-02-07 08:46] LABS: Hematocrit 35.6 % (41-53); Hemoglobin 11.9 g/dL (13.5-17.5); Mean Corpuscular HGB Conc 33.3 % (30-36); Mean Corpuscular Hemoglobin 28.8 PG (26-34); Mean Corpuscular Volume 86.6 fL (80-100); Platelet Count 132 X10^3/uL (150-400); Red Blood Cell Count 4.12 X10^6/uL (4.5-5.9); Red Cell Distribution Width 17.6 % (11.6-14.8); White Blood Cell Count 5.8 X10^3/uL (4.5-11.0)
[2024-02-07 09:36] LABS: Prostate Specific Antigen 1.09 ng/mL (0.10-4.00)
[2024-02-07 09:40] LABS: Ferritin 88 ng/mL (18-464)
[2024-02-07 10:30] LABS: HEMOLYSIS 16 (0-50); Iron 82 ug/dL (49-181)
[2024-02-07 10:41] LABS: Percent Iron Saturation 22 % (20-50); Total Iron Binding Capacity 366 ug/dL (261-462); Transferrin 295 mg/dL (206-381)
== END ==
LOC: LAB 07:16
PROVIDERS: Family Provider Internal Medicine; PCP Internal Medicine; Referring Provider Internal Medicine; Visit Provider Internal Medicine
DX: D50.9 Iron deficiency anemia, unspecified (principal); K92.2 Gastrointestinal hemorrhage, unspecified; R97.20 Elevated prostate specific antigen [PSA]
CPT/HCPCS: 36415; 82728; 83540; 83550; 84153; 85027

== ENCOUNTER → 2024-03-10 08:06 | Outpatient (CLI) | payer OTHER, SELFPAY ==
[2024-01-04 10:19] VITALS: BMI 27.8
[2024-03-10 09:29] LABS: Hematocrit 41.4 % (41-53); Hemoglobin 13.6 g/dL (13.5-17.5); Mean Corpuscular HGB Conc 32.8 % (30-36); Mean Corpuscular Hemoglobin 28.6 PG (26-34); Platelet Count 140 X10^3/uL (150-400); Red Blood Cell Count 4.76 X10^6/uL (4.5-5.9); Red Cell Distribution Width 18.2 % (11.6-14.8); White Blood Cell Count 6.7 X10^3/uL (4.5-11.0)
[2024-03-13 16:08] LABS: Interpretation Positive (Negative)
== END ==
PROVIDERS: Family Provider Internal Medicine; PCP Internal Medicine; Referring Provider Internal Medicine; Visit Provider Internal Medicine
DX: K27.9 Peptic ulcer, site unspecified, unspecified as acute or chronic, without hemorrhage or perforation (principal); D50.9 Iron deficiency anemia, unspecified; B96.81 Helicobacter pylori [H. pylori] as the cause of diseases classified elsewhere
CPT/HCPCS: 36415; 83013; 85027

== ENCOUNTER → 2024-04-07 08:13 | Outpatient (CLI) | payer OTHER, SELFPAY ==
[2024-01-04 10:19] VITALS: BMI 27.8
[2024-04-10 12:09] LABS: Interpretation Negative (Negative)
== END ==
LOC: LAB 08:14
PROVIDERS: Family Provider Internal Medicine; PCP Internal Medicine; Referring Provider Internal Medicine; Visit Provider Internal Medicine
DX: K27.9 Peptic ulcer, site unspecified, unspecified as acute or chronic, without hemorrhage or perforation (principal); B96.81 Helicobacter pylori [H. pylori] as the cause of diseases classified elsewhere
CPT/HCPCS: 83013

== ENCOUNTER → 2024-05-16 07:57 | Outpatient (CLI) | payer OTHER, SELFPAY ==
[2024-01-04 10:19] VITALS: BMI 27.8
[2024-05-16 10:32] LABS: Testosterone 324 ng/dL (71.8-623)
== END ==
PROVIDERS: Family Provider Internal Medicine; PCP Internal Medicine; Referring Provider Internal Medicine; Visit Provider Internal Medicine
DX: R53.1 Weakness (principal); R68.82 Decreased libido
CPT/HCPCS: 36415; 84403

== ENCOUNTER 2024-06-08 07:26 | Day surgery (SDC) | payer OTHER, SELFPAY ==
[2024-01-04 10:19] VITALS: BMI 27.8
--- NOTE | 2024-06-08 | PATH_ITS ---
[facility] Accession Number: [id number] No. of containers..01 Tissue . 01 Material submitted: . gastrointestinal site - ANTRUM . 01 Diagnosis: ANTRUM: Gastric mucosa with mild chronic inflammation. No Helicobacter organisms identified. No intestinal metaplasia, dysplasia, or malignancy identified. [facility] 06/14/20241317 Local . 01 Electronically signed: . Capo Jeong MD, Pathologist NPI- [id number] . 01 Gross description: . Specimen is received in formalin, labeled with two patient identifiers and antrum biopsy, and consists of steward irregular soft tissue fragments ranging from 0.1 cm up to 0.3 cm in greatest dimension, which are entirely submitted in cassette A1. ([id number]) /MRV 06/14/20241317 Local . 01 Microscopic: . ANTRUM: An immunohistochemical stain was performed to evaluate for Helicobacter organisms and is negative. The control stains appropriately. * This test was developed and its performance characteristics determined by [facility]. It has not been cleared or approved by the U.S. Food and Drug Administration. The FDA has determined that such clearance or approval is not necessary. This test is used for clinical purposes. It should not be regarded as investigational or for research. . 01 Pathologist provided ICD-10: K29.50 . 01 CPT . 510853, J11743 Specimen Comment: A courtesy copy of this report has been sent to [phone] Performed at: [address] [id number] MD Capo Jeong MD Phone: [phone]
[2024-06-08 08:13] VITALS: BP 125/78; PULSE 63; RESP 16; TEMP 36.2; O2SAT 98
[2024-06-08] MEDS: LACTATED RINGERS 1,000 ML 42 ML IV (08:25)
--- NOTE | 2024-06-08 08:55 | P.HP_ITS ---
History of Present Illness History of Present Illness Date Patient Seen: 06/08/24 Time Patient Seen: 08:55 Chief complaint: EGD w/poss bx Narrative: Anam is a 74-year-old man who had an EGD earlier this year with findings small antral ulcers. He was also found to have H pylori. He underwent antibiotic treatment of H pylori and has been healing well then. See prior notes for details. [facility] Medical History (Updated 03/14/24 @ 13:01 by Harsh Alexander MD) Peptic ulcer associated with Helicobacter pylori infection Rising PSA level Iron deficiency anemia Tachycardia Primary osteoarthritis involving multiple joints History of gout Hyperlipidemia type III BPH w urinary obs/LUTS Paroxysmal atrial flutter Non-rheumatic aortic stenosis Chronic insomnia Essential hypertension Chronic anticoagulation Surgical History S/P TAVR (transcatheter aortic valve replacement) Social History household members: spouse Smoking Status: Never smoker alcohol intake: current Meds Home Medications and Allergies Home Medications Medication Instructions Recorded Confirmed Type amlodipine 5 mg tablet (Norvasc) 5 mg PO QDAY ##0 12/23/16 06/08/24 History lisinopril 20 mg tablet 20 mg PO QDAY ##0 12/23/16 06/08/24 History metoprolol succinate 50 mg 50 mg PO DAILY 03/02/22 06/08/24 History tablet,extended release 24 hr amoxicillin 500 mg capsule 2,000 mg PO .prn 09/07/22 02/08/24 History coenzyme Q10 100 mg capsule See Rx Instructions PO BID 09/07/22 02/08/24 History niacin 500 mg tablet 500 mg PO BID 09/07/22 02/08/24 History omega 3 1,000 mg PO DAILY 09/07/22 02/08/24 History rosuvastatin 40 mg tablet 20 mg PO Q OTHER DAY 09/07/22 02/08/24 History pantoprazole 40 mg tablet,delayed 40 mg PO BID #60 tabs 01/01/24 06/08/24 Rx release tamsulosin 0.4 mg capsule 0.4 mg PO DAILY 02/08/24 02/08/24 History warfarin 5 mg tablet 5 mg PO DAILY 03/14/24 03/14/24 History Allergies Allergy/AdvReac Type Severity Reaction Status Date / Time No Known Allergies Allergy Unknown Verified 06/08/24 08:27 Exam Vital Signs (past 8 hours): - 06/08/24 08:13 Temperature 97.2 F L Pulse Rate 63 Respiratory Rate 16 Blood Pressure 125/78 Pulse Oximetry 98 Oxygen Delivery Method Room Air Oxygen Delivery Method Room Air Const General: healthy appearing Resp Effort & Inspection: normal respiratory effort Assessment & Plan Assessment and plan (1) Peptic ulcer associated with Helicobacter pylori infection: Status: Acute Plan We reviewed the risks and benefits of an esophagogastroduodenoscopy for history of ulcers and H pylori. I will see if he has a remaining ulcerations and perform biopsies to rule out resistant H.pylori infection. He would like to proceed. Time-Based Coding :: [TOTAL MINUTES] spent with patient and on the chart (including review of chart, obtaining history, exam, reviewing outside data, placing orders, documenting exam and treatment plan, and counseling patient) on [DATE].
--- NOTE | 2024-06-08 09:21 | PM.OP.EGD ---
Operative Date/Time/Diagnoses Date of procedure: 06/08/24 Time of procedure: 09:21 Pre-op diagnosis: History peptic ulcer disease and Helicobacter pylori infection Post-op diagnosis: same Procedure & Clinicians Study performed: Esophagogastroduodenoscopy Same procedure as scheduled: Yes Surgeon: Bernabe Evangelista Procedure Notes Procedure in detail: Surgeon: Bernabe Evangelista MD Anesthesia: Latrice Avalos MD A timeout was performed. A bite blocked was placed. The patient was positioned in the left lateral decubitus position. Anesthesia was administered. The endoscope was inserted through the bite block and passed through the esophagus and stomach and into the duodenum. The duodenal mucosa appeared normal. The scope was withdrawn into the duodenal bulb and no abnormalities were seen. The scope was withdrawn into the stomach. There was evidence of a recently healed ulcer in the antrum. Random biopsies were taken with the cold forceps from the antrum. The rest of the stomach was normal. The scope was retroflexed and no hiatal hernia was seen. The scope was withdrawn into the esophagus and no abnormalities were seen. The remainder of the esophagus was normal. The scope was withdrawn. The patient was awakened and brought to recovery. Sedation time: 4 minutes Findings: Evidence of a recently healed antral ulcer Post-procedure Disposition: PACU
[2024-06-08 09:23] VITALS: BP 103/71; PULSE 72; RESP 16; TEMP 36.8; O2SAT 97
[2024-06-08 09:28] VITALS: BP 102/70; PULSE 89; RESP 15; TEMP 36.8; O2SAT 96
[2024-06-08 09:33] VITALS: BP 105/71; PULSE 78; RESP 12; TEMP 36.8; O2SAT 97
[2024-06-08 09:36] VITALS: BP 104/67; PULSE 69; RESP 14; TEMP 36.7; O2SAT 97
== END 2024-06-08 09:48 | disposition home or self-care (01) ==
PROVIDERS: Family Provider Internal Medicine; PCP Internal Medicine; Referring Provider Surgery; Visit Provider Surgery
PROC: 0DJ08ZZ Inspection of Upper Intestinal Tract, Via Natural or Artificial Opening Endoscopic (ICD-10-PCS; CPT 43235; principal; 2024-06-08 08:45)
DX: K29.50 Unspecified chronic gastritis without bleeding (principal); Z87.11 Personal history of peptic ulcer disease
CPT/HCPCS: 43239; J2704

== ENCOUNTER → 2024-08-03 16:17 | Outpatient (CLI) | payer OTHER, SELFPAY ==
[2024-01-04 10:19] VITALS: BMI 27.8
== END ==
PROVIDERS: Family Provider Internal Medicine; PCP Internal Medicine; Referring Provider Internal Medicine; Visit Provider Internal Medicine
DX: Z23 Encounter for immunization (principal)
CPT/HCPCS: 90471; 90662

== ENCOUNTER → 2024-09-26 07:56 | Outpatient (CLI) | payer OTHER, SELFPAY ==
[2024-01-04 10:19] VITALS: BMI 27.8
[2024-09-26 08:44] LABS: Hemoglobin 14.9 g/dL (13.5-17.5); Mean Corpuscular HGB Conc 33.7 % (30-36); Mean Corpuscular Hemoglobin 30.3 PG (26-34); Mean Corpuscular Volume 89.9 fL (80-100); Platelet Count 158 X10^3/uL (150-400); Red Cell Distribution Width 14.1 % (11.6-14.8); White Blood Cell Count 6.2 X10^3/uL (4.5-11.0)
[2024-09-26 10:19] LABS: HEMOLYSIS < 15 (0-50); Iron 128 ug/dL (49-181)
[2024-09-26 10:21] LABS: Alanine Aminotransferase 36 IU/L (<50); Albumin 4.4 g/dL (3.5-5.0); Albumin Globulin Ratio 1.6 (1.0-2.8); Alkaline Phosphatase 104 U/L (38-126); Aspartate Aminotransferase 41 IU/L (17-59); BUN Creatinine Ratio 26.7 (6-22); Bilirubin Total 0.6 mg/dL (0.2-1.3); Blood Urea Nitrogen 23 mg/dL (9-20); Calcium 9.7 mg/dL (8.4-10.2); Carbon Dioxide 25 mmol/L (22-32); Chloride 106 mmol/L (98-107); Cholesterol 201 mg/dL (140-199); Estimated Glomerular Filt Rate > 60 mL/min (>60); Globulin 2.7 g/dL (1.7-4.1); Glucose 107 mg/dL (80-110); HDL Cholesterol 60 mg/dL (40-60); HEMOLYSIS < 15 (0-50); LDL Cholesterol Calculated 89 mg/dL (<100); Potassium 4.4 mmol/L (3.4-5.1); Sodium 139 mmol/L (137-145); Total Protein 7.1 g/dL (6.3-8.2); Triglycerides 258 mg/dL (35-150)
[2024-09-26 10:26] LABS: High Sensitivity CRP - Cardiac 1.2 mg/L (1.0-3.0)
[2024-09-26 10:33] LABS: Percent Iron Saturation 37 % (20-50); Total Iron Binding Capacity 350 ug/dL (261-462); Transferrin 313 mg/dL (206-381)
[2024-09-26 10:56] LABS: Ferritin 34 ng/mL (18-464)
== END ==
PROVIDERS: Family Provider Internal Medicine; PCP Internal Medicine; Referring Provider Internal Medicine; Visit Provider Internal Medicine Cardiovascular Disease
DX: I10 Essential (primary) hypertension (principal); E78.5 Hyperlipidemia, unspecified; E78.2 Mixed hyperlipidemia; D50.9 Iron deficiency anemia, unspecified; I48.92 Unspecified atrial flutter
CPT/HCPCS: 36415; 80053; 80061; 82728; 83540; 83550; 85027; 86140

== ENCOUNTER → 2024-11-28 08:01 | Outpatient (CLI) | payer OTHER, SELFPAY ==
[2024-01-04 10:19] VITALS: BMI 27.8
--- NOTE | 2024-11-28 | DI.ECHO.S_ITS ---
[place] [facility]+ [facility] : : [address] : : [id number] : : Phone: [phone] Echocardiogram Report + + :Name: PAULA ONEILL Study Date: 11/28/2024 Height: 74.5 in: :[facility] ReadingLocation: Weight: 225 lb : : Gender: Male BSA: 2.3 m2 : :: 1950 Age: 74 yrs BP: 106/63 mmHg: :Reason For Study: PROSTHETIC HEART VALVE : :Ordering Physician: ARISTEO, : :LYNDON Performed By: Madeleine Gregg : :Referring: LYNDON SMITH : + + Interpretation Summary 1) Normal left ventricular thickness, size, wall motion, and systolic function (EF 65-70%). 2) Mildly enlarged right ventricle with normal function. 3) The left atrium is severely dilated 4) There is a bioprosthetic aortic valve that is well seated and opens well (mean gradient 13 mmHg). No aortic regurgitation is present. 5) The right ventricular systolic pressure is estimated to be at least 33 mmHg based on an estimated right atrial pressure of 3 mm Hg. 6) Compared to the Echo done 11/23/2023, no significant change. Procedure: A two-dimensional transthoracic echocardiogram with color flow and Doppler was performed. The study quality was technically adequate. Comparison is made with the echocardiogram of 11/23/2023. The patient was in sinus rhythm with heart rates between 68-73 bpm during the exam. Left Ventricle: The left ventricle is normal in size and wall thickness. The ejection fraction is estimated to be 65-70%. Left ventricular systolic function appears normal without focal wall motion abnormalities. Diastolic parameters suggest a pseudonormalization pattern, consistent with probable elevated filling pressures. Right Ventricle: The right ventricle is mildly dilated. The right ventricular systolic function is normal. Atria: The left atrium is severely dilated. Right atrial size is normal. There is no Doppler evidence for an interatrial shunt. Mitral Valve: There is severe mitral annular calcification. The mitral valve leaflets are mildly calcified. There is mild mitral stenosis. The mitral valve mean gradient is 5.0 mmHg. There is mild mitral regurgitation. Aortic Valve: There is a bioprosthetic aortic valve. The peak aortic velocity is 2.3 m/sec. The aortic valve mean gradient is 13 mmHg. No aortic regurgitation is present. Tricuspid Valve: The tricuspid valve leaflets are thin and pliable. There is mild tricuspid regurgitation. The right ventricular systolic pressure is estimated to be at least 33 mmHg based on an estimated right atrial pressure of 3 mm Hg. Pulmonic Valve: The pulmonic valve is not well visualized. There is a trace or physiologic amount of pulmonic regurgitation. Great Vessels: The dimensions of the ascending aorta are normal. The IVC is of normal diameter and collapses greater than 50% with a sniff. This suggests a low right atrial pressure of 3 mm Hg. Pericardium/ Pleura There is no pericardial effusion. There is no pleural effusion. MMode/2D Measurements & Calculations LVIDd: 4.5 cm LVOT diam: 2.0 cm LVIDs: 2.6 cm asc Aorta Diam: 3.5 cm FS: 42.3 % Ao Arch Diam (Prox Trans): 3.1 cm IVSd: 0.96 cm LVPWd: 1.0 cm LV burgos. diameter/BSA (cm/m^2): 2.0 LV sys. diameter/BSA (cm/m^2): 1.1 LA A2 area: 32.8 cm2 RA long axis: 6.1 cm LA A4 area: 34.7 cm2 RA area: 22.6 cm2 LA length (vol): 7.1 cm RA vol: 70.7 ml LA vol: 136.9 ml RA : 30.8 ml/m2 LA vol index: 59.6 ml/m2 IVC diam: 1.3 cm RVD1 (basal): 4.2 cm RVD2 (mid): 3.5 cm TAPSE: 2.7 cm Doppler Measurements & Calculations Ao V2 max: 229.5 cm/sec LVOT Max Saurav: 135.3 cm/sec Ao V2 mean: 154.7 cm/sec LV V1 max P.3 mmHg Ao max P.9 mmHg LV V1 VTI: 28.4 cm Ao mean P.2 mmHg TERRIE(I,D): 2.3 cm2 Ao V2 VTI: 39.8 cm TERRIE(V,D): 1.9 cm2 sev ratio: 0.71 TERRIE indexed to BSA (cm^2/m^2): 1.0 MV E max saurav: 132.2 cm/sec TR max saurav: 269.7 cm/sec MV A max saurav: 151.5 cm/sec TR max P.1 mmHg MV E/A: 0.87 PA V2 max: 110.3 cm/sec Med Peak E' Saurav: 5.5 cm/sec PA V2 mean: 77.7 cm/sec E/E' med: 24.1 PA mean P.7 mmHg Lat Peak E' Saurav: 5.0 cm/sec PA pr(Accel): 51.6 mmHg E/E' lat: 26.5 E/e' average: 25.3 MV dec time: 0.32 sec MVA(VTI): 1.8 cm2 MV V2 mean: 103.5 cm/sec SV(LVOT): 93.4 ml MV mean P.9 mmHg MV V2 VTI: 50.6 cm Reading Physician:01:29 PM
== END ==
PROVIDERS: Family Provider Internal Medicine; PCP Internal Medicine; Referring Provider Internal Medicine Cardiovascular Disease; Visit Provider Internal Medicine Cardiovascular Disease
DX: I08.1 Rheumatic disorders of both mitral and tricuspid valves (principal); Z95.2 Presence of prosthetic heart valve
CPT/HCPCS: 93306

== ENCOUNTER → 2025-02-28 07:20 | Outpatient (CLI) | payer OTHER, SELFPAY ==
[2024-01-04 10:19] VITALS: BMI 27.8
[2025-02-28 07:49] LABS: Hematocrit 43.2 % (41-53); Hemoglobin 14.7 g/dL (13.5-17.5); Mean Corpuscular HGB Conc 34.1 % (30-36); Mean Corpuscular Hemoglobin 30.8 PG (26-34); Mean Corpuscular Volume 90.2 fL (80-100); Platelet Count 145 X10^3/uL (150-400); Red Blood Cell Count 4.78 X10^6/uL (4.5-5.9); Red Cell Distribution Width 13.6 % (11.6-14.8); White Blood Cell Count 6.7 X10^3/uL (4.5-11.0)
[2025-02-28 08:02] LABS: HEMOLYSIS < 15 (0-50); Hemoglobin A1C% w Est Avg Glu 5.6 % (4.0-6.0); Iron 139 ug/dL (49-181)
[2025-02-28 08:03] LABS: Alanine Aminotransferase 39 IU/L (<50); Albumin 4.7 g/dL (3.5-5.0); Albumin Globulin Ratio 1.8 (1.0-2.8); Alkaline Phosphatase 91 U/L (38-126); Aspartate Aminotransferase 43 IU/L (17-59); BUN Creatinine Ratio 30.7 (6-22); Bilirubin Total 0.7 mg/dL (0.2-1.3); Blood Urea Nitrogen 23 mg/dL (9-20); Calcium 9.8 mg/dL (8.4-10.2); Carbon Dioxide 23 mmol/L (22-32); Chloride 109 mmol/L (98-107); Cholesterol 166 mg/dL (140-199); Estimated Glomerular Filt Rate > 60 mL/min (>60); Globulin 2.6 g/dL (1.7-4.1); Glucose 100 mg/dL (70-99); HDL Cholesterol 60 mg/dL (40-60); HEMOLYSIS < 15 (0-50); LDL Cholesterol Calculated 74 mg/dL (<100); Potassium 4.3 mmol/L (3.4-5.1); Sodium 141 mmol/L (137-145); Total Protein 7.3 g/dL (6.3-8.2); Triglycerides 158 mg/dL (35-150)
[2025-02-28 08:19] LABS: Percent Iron Saturation 37 % (20-50); Total Iron Binding Capacity 379 ug/dL (261-462); Transferrin 305 mg/dL (206-381)
[2025-02-28 08:37] LABS: Prostate Specific Antigen 1.43 ng/mL (0.10-4.00)
[2025-02-28 08:38] LABS: TSH w/ Reflex to FT4 1.83 uIU/mL (0.47-4.68)
[2025-02-28 08:41] LABS: Ferritin 35 ng/mL (18-464)
[2025-02-28 08:56] LABS: Vitamin B12 Reflex MMA if <400 684 pg/mL (239-931)
== END ==
LOC: LAB 07:21
PROVIDERS: Family Provider Internal Medicine; PCP Internal Medicine; Referring Provider Internal Medicine; Visit Provider Internal Medicine
DX: E78.2 Mixed hyperlipidemia (principal); I48.92 Unspecified atrial flutter; N40.1 Benign prostatic hyperplasia with lower urinary tract symptoms; N13.8 Other obstructive and reflux uropathy; R73.01 Impaired fasting glucose; R77.9 Abnormality of plasma protein, unspecified; E53.8 Deficiency of other specified B group vitamins; D50.9 Iron deficiency anemia, unspecified
CPT/HCPCS: 36415; 80053; 80061; 82607; 82728; 83036; 83540; 83550; 84153; 84155; 84165; 84443; 85027

== ENCOUNTER → 2025-03-27 08:42 | Outpatient (CLI) | payer OTHER, SELFPAY ==
[2024-01-04 10:19] VITALS: BMI 27.8
--- NOTE | 2025-03-27 08:44 | DI.CT.S_ITS ---
PROCEDURE: CT HEAD/BRAIN WO CON INDICATIONS: abnormal gait TECHNIQUE: Noncontrast 4.5 mm thick angled axial sections acquired from the foramen magnum to the vertex, with coronal and sagittal reformats. For radiation dose reduction, the following was used: automated exposure control, adjustment of mA and/or kV according to patient size. COMPARISON: None. FINDINGS: Image quality: Diagnostic. CSF spaces: Basal cisterns are patent. No extra-axial fluid collections. The ventricles are symmetric in size and shape. Brain: No intracranial bleeds or mass effect. There is cerebral volume loss, with resultant ventricular and sulcal prominence. There are periventricular and deep white matter chronic small vessel ischemic changes. There is intracranial internal carotid artery atherosclerosis. Skull and face: Calvarium and visualized facial bones appear intact, without suspicious lesions. Sinuses: Visualized sinuses and mastoids are clear. IMPRESSION: 1. CT head without acute intracranial abnormalities or acute calvarial fractures. 2. Age-related senescent changes and sequela of chronic small vessel ischemic disease. Dictated by: Morris Archer M.D. on 03/27/2025 at 9:35 Approved by: Morris Archer M.D. on 03/27/2025 at 9:36
== END ==
PROVIDERS: Family Provider Internal Medicine; PCP Internal Medicine; Referring Provider Internal Medicine; Visit Provider Internal Medicine
DX: G91.2 (Idiopathic) normal pressure hydrocephalus (principal); I67.82 Cerebral ischemia; I65.29 Occlusion and stenosis of unspecified carotid artery
CPT/HCPCS: 70450

== ENCOUNTER 2025-04-06 07:11 | Emergency (ER) | payer OTHER, SELFPAY ==
[2024-01-04 10:19] VITALS: BMI 27.8
[2025-04-06] VITALS (24 sets, daily range): BP systolic 104–122; BP diastolic 55–78; PULSE 56–123; RESP 12–24; TEMP 36.4; O2SAT 93–99; BMI 27.5
--- NOTE | 2025-04-06 07:21 | DI.RAD.S_ITS ---
PROCEDURE: XR CHEST 1V INDICATIONS: Chest Pain TECHNIQUE: One view of the chest was acquired. COMPARISON: None. FINDINGS: Surgical changes and devices: Prosthetic valve. Lungs and pleura: Lungs are clear. No pleural effusions or pneumothorax. Mediastinum: Mediastinal contours appear normal. Heart size is enlarged. Bones and chest wall: No suspicious bony lesions. Overlying soft tissues appear unremarkable. IMPRESSION: No acute cardiopulmonary abnormality is seen. Dictated by: Rafi Youngblood M.D. on 04/06/2025 at 8:21 Approved by: Rafi Youngblood M.D. on 04/06/2025 at 8:21
--- NOTE | 2025-04-06 07:21 | EKG_ITS ---
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
--- NOTE | 2025-04-06 07:31 | ED.ARRPALP ---
HPI - Arrhythmia/Palpitations General Chief Complaint: Arrhythmia/Palpitations Stated Complaint: Onset AFIB this morning Time Seen by Provider: 04/06/25 07:31 Source: patient, RN notes reviewed and old records reviewed Mode of arrival: Ambulatory Limitations: no limitations History of Present Illness HPI narrative: 75-year-old male history of atrial fibrillation on Coumadin, hypertension, dyslipidemia TAVR 2 years prior who presents with complaint of waking up and feeling irregularly irregular heart rate patient states no chest pain, no shortness of breath at rest but noticed going up the stairs with a little bit harder. Denies any syncope. No diaphoresis. No nausea or vomiting. No recent diarrhea or other GI symptoms. No urinary symptoms. No new swelling in extremities. Patient notes they did take their morning medications at about 4:00 a.m. this morning patient states had an episode of atrial flutter years ago but it was not typically in atrial flutter or fib. They had a ZIO patch for approximately a month which was normal recently. Patient is on Coumadin, metoprolol 50 mg, lisinopril 20 mg, amlodipine 5 mg and statin daily as well as Co Q10 and magnesium. No known drug allergies. States TAVR proximally 2 years ago, no prior cardiac stents or ablation. Notes recent echo in the last year. No tobacco, alcohol or recreational drugs. Follow with Dr. Smith for Cardiology. Follows with Dr. Alexander is primary care physician. Related Data Home Medications ?Medication ?Instructions ?Recorded ?Confirmed amlodipine 5 mg tablet (Norvasc) 5 mg PO QDAY ##0 12/23/16 03/06/25 lisinopril 20 mg tablet 20 mg PO QDAY ##0 12/23/16 03/06/25 metoprolol succinate 50 mg 50 mg PO DAILY 03/02/22 03/06/25 tablet,extended release 24 hr amoxicillin 500 mg capsule 2,000 mg PO .prn 09/07/22 03/06/25 coenzyme Q10 100 mg capsule See Rx Instructions PO BID 09/07/22 03/06/25 omega 3 1,000 mg PO DAILY 09/07/22 03/06/25 rosuvastatin 40 mg tablet 20 mg PO Q OTHER DAY 09/07/22 03/06/25 tamsulosin 0.4 mg capsule 0.4 mg PO DAILY 02/08/24 03/06/25 warfarin 5 mg tablet 5 mg PO DAILY 03/14/24 03/06/25 Allergies Allergy/AdvReac Type Severity Reaction Status Date / Time No Known Allergies Allergy Unknown Verified 04/06/25 07:17 Review of Systems Review of Systems ROS Unobtainable: All systems reviewed & are unremarkable except as noted in HPI and below Patient History Medical History History of colonic polyps Polyneuropathy, unspecified Peptic ulcer associated with Helicobacter pylori infection Rising PSA level Iron deficiency anemia Tachycardia Primary osteoarthritis involving multiple joints History of gout Hyperlipidemia type III BPH w urinary obs/LUTS Paroxysmal atrial flutter Non-rheumatic aortic stenosis Chronic insomnia Essential hypertension Chronic anticoagulation Surgical History S/P TAVR (transcatheter aortic valve replacement) Social History details: (Nidia), 2 grown children household members: spouse Smoking Status: Never smoker alcohol intake: current Smoking Status: Never smoker alcohol intake frequency: holidays/special occasions only Exam Narrative Exam Narrative: GENERAL: Alert and oriented x three, well-appearing male in mild distress. No diaphoresis. HEENT: Head normocephalic, atraumatic, EOMI, pupils reactive, face symmetric, moist mucous membranes NECK: Supple, full range of motion CARDIOVASCULAR: Irregularly irregular rate and rhythm without murmurs, rubs or gallops. No JVD. No edema bilateral lower extremities. RESPIRATORY: Breath sounds equal bilaterally, no wheezes rales or rhonchi. ABDOMEN: Soft, nontender. Normoactive bowel sounds all 4 quadrants. No guarding or rebound, rigidity, no mass : No CVA tenderness EXTREMITIES: Normal range of motion, no clubbing or edema. Neurovascularly intact NEUROLOGICAL: Cranial nerves II through XII grossly intact. Moving all extremities SKIN: Warm, dry, no petechiae, no rashes or lesions. Initial Vital Signs Initial Vital Signs: Vital Signs Pulse Rate 92 H 04/06/25 07:48 Respiratory Rate 20 04/06/25 07:48 Pulse Oximetry 95 04/06/25 07:48 Course Orders Ordered: Discontinued Medications Aspirin (Aspirin 81 Mg Chew Tab) 324 mg PO NOW ONE Stop: 04/06/25 07:22 Last Admin: 04/06/25 07:42 Dose: Not Given Documented By: KIMMY Diltiazem HCl (Diltiazem 25 Mg/5 Ml Sdv) 10 mg IV NOW ONE Stop: 04/06/25 09:30 Last Admin: 04/06/25 09:38 Dose: 10 mg Documented By: KIMMY Enoxaparin Sodium (Enoxaparin 100 Mg/Ml Syringe) 150 mg 1.5 mg/kg (150 mg) SUBCUT NOW ONE Stop: 04/06/25 10:46 Last Admin: 04/06/25 10:51 Dose: 150 mg Documented By: JOSE Sodium Chloride (Normal Saline 0.9%) 1,000 mls @ 1,000 mls/hr IV BOLUS ONE Stop: 04/06/25 08:39 Last Infusion: 04/06/25 08:34 Dose: Infused Documented By: Admin: 04/06/25 07:43 Dose: 1,000 mls/hr Documented By: KIMMY Sodium Chloride (Normal Saline 0.9%) 500 mls @ 1,000 mls/hr IV BOLUS ONE Stop: 04/06/25 09:58 Last Infusion: 04/06/25 10:49 Dose: Infused Documented By: Admin: 04/06/25 09:39 Dose: 1,000 mls/hr Documented By: KIMMY Vital Signs Vital signs: Vital Signs - 8 hr 04/06/25 07:48 04/06/25 08:00 04/06/25 08:00 Pulse Rate 92 H 89 Respiratory Rate 20 14 Blood Pressure 104/73 Pulse Oximetry 95 94 04/06/25 08:15 04/06/25 08:15 04/06/25 08:30 Pulse Rate 86 Respiratory Rate 13 Blood Pressure 116/74 122/78 Pulse Oximetry 93 04/06/25 08:30 04/06/25 08:45 04/06/25 08:45 Pulse Rate 93 H 92 H Respiratory Rate 21 17 Blood Pressure 112/73 Pulse Oximetry 96 96 04/06/25 09:00 04/06/25 09:00 04/06/25 09:15 Pulse Rate 88 Respiratory Rate 22 Blood Pressure 121/78 117/72 Pulse Oximetry 96 04/06/25 09:15 04/06/25 09:30 04/06/25 09:30 Pulse Rate 90 101 H Respiratory Rate 13 16 Blood Pressure 110/65 Pulse Oximetry 97 97 04/06/25 09:38 04/06/25 09:45 04/06/25 09:45 Pulse Rate 123 H 87 Respiratory Rate 16 Blood Pressure 110/65 105/73 Pulse Oximetry 96 MDM - Arrhythmia/Palpitations Lab Data 04/06/25 07:30 04/06/25 07:30 Labs: Lab Results 04/06/25 Range/Units 07:30 WBC 8.0 (4.5-11.0) X10^3/uL RBC 4.75 (4.5-5.9) X10^6/uL Hgb 14.8 (13.5-17.5) g/dL Hct 43.3 (41-53) % MCV 91.2 (80-100) fL MCH 31.2 (26-34) PG MCHC 34.2 (30-36) % RDW 13.7 (11.6-14.8) % Plt Count 154 (150-400) X10^3/uL Neut % (Auto) 68.0 (50-75) % Lymph % (Auto) 20.8 L (25-40) % Cavalier % (Auto) 8.6 (3-14) % Eos % (Auto) 1.9 L (2-4) % Baso % (Auto) 0.7 (0-2) % Neut # (Auto) 5500 (0653-6152) /uL Lymph # (Auto) 1700 (4684-0707) /uL Cavalier # (Auto) 700 (0-900) /uL Eos # (Auto) 200 (0-450) /uL Baso # (Auto) 100 (0-100) /uL PT 18.3 H (9.4-12.5) SECONDS INR 1.6 H (0.9-1.3) APTT 45 H (25.1-36.5) SECONDS Sodium 140 (137-145) mmol/L Potassium 4.4 (3.4-5.1) mmol/L Chloride 106 (98-107) mmol/L Carbon Dioxide 24 (22-32) mmol/L BUN 28 H (9-20) mg/dL Creatinine 0.84 (0.66-1.25) mg/dL Estimated GFR > 60 (>60) mL/min BUN/Creatinine Ratio 33.3 H (6-22) Glucose 119 H (70-99) mg/dL Calcium 9.7 (8.4-10.2) mg/dL Magnesium 2.1 (1.6-2.3) mg/dL Total Bilirubin 0.6 (0.2-1.3) mg/dL AST 42 (17-59) IU/L ALT 34 (<50) IU/L Alkaline Phosphatase 94 (38-126) U/L Total Creatine Kinase 182 H (55-170) U/L Troponin I < 0.012 (0.01-0.034) ng/mL NT-Pro-B Natriuret Pep 492 H (<450) pg/mL Total Protein 7.8 (6.3-8.2) g/dL Albumin 4.6 (3.5-5.0) g/dL Globulin 3.2 (1.7-4.1) g/dL Albumin/Globulin Ratio 1.4 (1.0-2.8) Lipase 71 (23-300) U/L ECG Data Attestation: I personally reviewed and interpreted this ECG as follows: Interpretation: Atrial fibrillation, right bundle-branch block with a rate of 97, QRS of 128 QTC of 480, no acute ST elevation or depression noted. Patient was prior from their home EKG machine which showed similar change with a rate of 118. Last EKG in EMR is from 12/30/2023 shows sinus rhythm with sinus arrhythmia rate 81. MDM Narrative Medical decision making narrative: 75-year-old male presents in atrial fibrillation, RVR heart rate ranging from 90 to 120s. Patient did take home medications of metoprolol, lisinopril and amlodipine this morning. Patient's pressure slightly soft at systolic 109 but map of 80. We will obtain labs, give L of fluids we will hold off on IV medications at this time. Patient was anticoagulated on Coumadin we will evaluate to see if there potential candidate for cardioversion. Patient was echo 11/28/2024 which showed normal EF of 65-70% mildly enlarged right ventricle with normal function left atrium was severely dilated bioprosthetic aortic valve well seated opening well with no regurg present. Right ventricular systolic pressure estimated to be less 33 mm. Compared echo from 11/23/2023 showed no significant change. Labs normal white count, hemoglobin and platelets, INR is 1.6. BUN, electrolytes are normal except for BUN 28, glucose is 119, Mag is 2.1, potassium is 4.4, LFTs are normal troponins less than 0.012 with a BNP of 492. Chest x-ray shows no acute cardiopulmonary abnormality. EKG showed AFib rate was 97 but on telemetry patient ranges between 90s and 120s. Patient had fluids initially was little bit hypotensive, pressures were improves I gave 10 mg of diltiazem patient appears to have cardioverted. Discussed with Cardiology, Dr. Contreras: Patient was rate controlled but still in atrial fibrillation had his morning medications patient INR has not quite therapeutic but he also notes he had has ZIO patch for a month which did not show any acute change, electrolytes, chest x-ray and workup otherwise negative with a normal echo. Several pages out to Dr. Contreras. Ended up speaking with Dr. 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 Discussed probably would not cardiovert based on that would recommend getting him therapeutic possibly switching him to Eliquis or if not willing to give a dose of Lovenox, if continuing to be in atrial fibrillation to adjust his medications possibly outpatient follow up if patient is feeling well enough to discharge. Appears patient may have cardioverted they are repeating an EKG during our conversation and if he appears to be in sinus rhythm would increase his metoprolol to 50 by b.i.d. but DC amlodipine and switch to Eliquis if possible or give a dose of Lovenox in the department and have patient's INR rechecked after taking additional dose. Patient is to follow up in the next week if persistent atrial fibrillation or paroxysmal for possible outpatient CHRISTINA and cardioversion. We did discuss on repeat heart rates in the 50s to 60s so to continue to monitor heart rate and may not increase metoprolol. If patient's blood pressure continues to little bit soft may want to DC his amlodipine as well. Patient has compresses understanding. Repeat EKG shows, sinus bradycardia first-degree AV block with premature atrial complexes right bundle-branch block rate of 56 ND 228 QRS of 140 QTC of 440. Discharge Plan Departure Patient Disposition: Home Clinical Impression: Atrial fibrillation with rapid ventricular response Activity Restrictions/Additional Instructions: Follow up with Cardiology. I did speak with your corsets salesperson today they note if you continue to have atrial fibrillation but are feeling okay call and they can set you up for outpatient follow up and possibly CHRISTINA and cardioversion. Dr. Smith, did recommend being and a longer anticoagulants because less likely to have lows but did ask that we give a dose of Lovenox here to bridge you if you continue on your Coumadin. Please follow up next 1-2 days for repeat level. I would take an extra dose tonight of your Coumadin. To please continue to monitor your heart rate if it we will tolerate it is recommended you increase your metoprolol to 50 mg twice daily and stop her amlodipine. If you are blood pressure is too low I would continue to hold your amlodipine but continue with your metoprolol your current dosing. Please return for new or concerning changes, new chest pain, increasing shortness of breath, new swelling in your extremities, any lightheadedness or passing out, recurrent symptoms or other new or concerning changes. Prescriptions: No Action lisinopril 20 MG tablet 20 mg PO QDAY Qty: 0 amlodipine [Norvasc] 5 MG tablet 5 mg PO QDAY Qty: 0 metoprolol succinate 50 mg tablet extended release 24 hr 50 mg PO DAILY rosuvastatin 40 mg tablet 20 mg PO Q OTHER DAY amoxicillin 500 mg capsule 2,000 mg PO .prn Patient Comments: TAKE FOUR CAPSULES BY MOUTH ONE HOUR BEFORE DENTAL APPOINTMENT Rx Instructions: TAKE FOUR CAPSULES BY MOUTH ONE HOUR BEFORE DENTAL APPOINTMENT omega 3 1,000 mg solution 1,000 mg PO DAILY coenzyme Q10 100 mg capsule See Rx Instructions PO BID Rx Instructions: 100 mg in am and 200 mg in pm. tamsulosin 0.4 mg capsule 0.4 mg PO DAILY warfarin 5 mg tablet 5 mg PO DAILY Protocol: Dose Management Condition: Wednesday Dose/Route: 5 mg Instruction: 1 x 5 mg tablet Condition: Wednesday Dose/Route: 5 mg Instruction: 1 x 5 mg tablet Condition: Wednesday Dose/Route: 5 mg Instruction: 1 x 5 mg tablet Condition: Wednesday Dose/Route: 5 mg Instruction: 1 x 5 mg tablet Condition: Dose/Route: 5 mg Instruction: 1 x 5 mg tablet Condition: Wednesday Dose/Route: 5 mg Instruction: 1 x 5 mg tablet Condition: Wednesday Dose/Route: 5 mg Instruction: 1 x 5 mg tablet Protocol Text: Adjustment Start Date: Wednesday02/20/25 INR Value: 2.0 INR Date: 02/20/25 Recheck Date: 04/10/25 Rx Instructions: 7.5 mg on Wednesday's and 5 mg all other days. Referrals: Harsh Alexander MD [Primary Care Provider, Internal Medicine] Emilee Smith MD [Physician, Cardiology] Stand Alone Forms: Patient Portal/API
[2025-04-06] MEDS: SODIUM CHLORIDE 0.9% 1,000 ML 1000 ML IV (07:43)
[2025-04-06 07:46] LABS: INR 1.6 (0.9-1.3); Prothrombin Time 18.3 SECONDS (9.4-12.5)
[2025-04-06 07:49] LABS: PTT Partial Thromboplastin Tim 45 SECONDS (25.1-36.5)
[2025-04-06 07:51] LABS: Alanine Aminotransferase 34 IU/L (<50); Albumin 4.6 g/dL (3.5-5.0); Albumin Globulin Ratio 1.4 (1.0-2.8); Alkaline Phosphatase 94 U/L (38-126); Aspartate Aminotransferase 42 IU/L (17-59); BUN Creatinine Ratio 33.3 (6-22); Bilirubin Total 0.6 mg/dL (0.2-1.3); Blood Urea Nitrogen 28 mg/dL (9-20); Calcium 9.7 mg/dL (8.4-10.2); Carbon Dioxide 24 mmol/L (22-32); Chloride 106 mmol/L (98-107); Creatine Kinase 182 U/L (55-170); Estimated Glomerular Filt Rate > 60 mL/min (>60); Globulin 3.2 g/dL (1.7-4.1); Glucose 119 mg/dL (70-99); HEMOLYSIS 19 (0-50); Lipase 71 U/L (23-300); Magnesium 2.1 mg/dL (1.6-2.3); Potassium 4.4 mmol/L (3.4-5.1); Sodium 140 mmol/L (137-145); Total Protein 7.8 g/dL (6.3-8.2)
[2025-04-06 07:53] LABS: Add Manual Diff / Slide Review NO; Basophils Absolute Auto 100 /uL (0-100); Basophils Percent Auto 0.7 % (0-2); Eosinophils Absolute Auto 200 /uL (0-450); Eosinophils Percent Auto 1.9 % (2-4); Hematocrit 43.3 % (41-53); Hemoglobin 14.8 g/dL (13.5-17.5); Lymphocytes Absolute Auto 1700 /uL (1100-4500); Lymphocytes Percent Auto 20.8 % (25-40); Mean Corpuscular HGB Conc 34.2 % (30-36); Mean Corpuscular Hemoglobin 31.2 PG (26-34); Mean Corpuscular Volume 91.2 fL (80-100); Monocytes Absolute Auto 700 /uL (0-900); Monocytes Percent Auto 8.6 % (3-14); Neutrophils Absolute Auto 5500 /uL (1500-7000); Platelet Count 154 X10^3/uL (150-400); Red Blood Cell Count 4.75 X10^6/uL (4.5-5.9); Red Cell Distribution Width 13.7 % (11.6-14.8)
--- NOTE | 2025-04-06 07:59 | PC.NURSE ---
Addendum entered by Allison Torres R.N. 04/06/25 08:01: Hx of TAVR Original Note: Pt reports he has not had any change in his medical hx. He states many years ago he had a bout of aflutter and converted out of this with diltiazem. Pt reports he has been active w/ cycling. Pt reports he is otherwise healthy. Reports he had a zio patch on in november and states nothing was detected then. Respirations regular and unlabored. No edema noted. Pt reports he took bp medicine this morning and still noted a change in rate.
[2025-04-06 08:02] LABS: NT-proBNP (BNP-Adult 18+) 492 pg/mL (<450); Troponin I < 0.012 ng/mL (0.01-0.034)
[2025-04-06] MEDS: dilTIAZem 25 MG/5 ML SDV 10 MG IV (09:38)
[2025-04-06] MEDS: SODIUM CHLORIDE 0.9% 500 ML 1000 ML IV (09:39)
--- NOTE | 2025-04-06 10:05 | EKG_ITS ---
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
[2025-04-06] MEDS: ENOXAPARIN 100 MG/ML SYRINGE 150 MG SUBCUT (10:51)
== END 2025-04-06 10:58 | disposition home or self-care (01) ==
PROVIDERS: Emergency Provider Emergency Medicine; Family Provider Internal Medicine; PCP Internal Medicine
DX: I48.91 Unspecified atrial fibrillation (principal); R00.1 Bradycardia, unspecified; I45.10 Unspecified right bundle-branch block; I49.1 Atrial premature depolarization; Z79.01 Long term (current) use of anticoagulants; Z95.4 Presence of other heart-valve replacement
CPT/HCPCS: 36415; 71045; 80053; 82550; 83690; 83735; 83880; 84484; 85025; 85610; 85730; 93005; 96361; 96372; 96374; 99284; J1650

== ENCOUNTER → 2025-06-05 07:06 | Outpatient (CLI) | payer OTHER, SELFPAY ==
[2024-01-04 10:19] VITALS: BMI 27.8
== END ==
PROVIDERS: PCP Internal Medicine; Referring Provider Orthopaedic Surgery Adult Reconstructive Orthopaedic Surgery; Visit Provider Orthopaedic Surgery Adult Reconstructive Orthopaedic Surgery
DX: Z96.651 Presence of right artificial knee joint (principal)
CPT/HCPCS: 36415; 85651; 86140